=== PATIENT | female | born 1975 | race Caucasian/White ===

== ENCOUNTER → 2018-03-11 | Outpatient (CLI) | payer BC ==
--- NOTE | 2018-03-11 13:06 | XR ---
EXAMINATION TYPE: XR chest 2V DATE OF EXAM: 03/11/2018 COMPARISON: NONE HISTORY: History of ovarian cancer per order. Cough for 4 days on chemotherapy per patient. TECHNIQUE: Frontal and lateral views of the chest are obtained. FINDINGS: There is no focal air space opacity, pleural effusion, or pneumothorax seen. The cardiac silhouette size is within normal limits. The osseous structures are intact. IMPRESSION: No suspicious acute infiltrate.
== END ==
LOC: RADXRMAIN 12:02
PROVIDERS: ATTEND Internal Medicine Hematology & Oncology
DX: C56.9 Malignant neoplasm of unspecified ovary (principal); M25.50 Pain in unspecified joint; R11.0 Nausea; Z71.3 Dietary counseling and surveillance
CPT/HCPCS: 71046

== ENCOUNTER → 2018-06-03 | Outpatient (CLI) | payer BC ==
[2018-06-03 12:09] LABS: Blood Urea Nitrogen 15 mg/dL (7-17)
--- NOTE | 2018-06-03 13:55 | CT ---
EXAMINATION TYPE: CT abdomen pelvis w con DATE OF EXAM: 06/03/2018 HISTORY: Recent diagnosis ovarian cancer. CT DLP: 921.6mGycm Automated Exposure Control for Dose Reduction was Utilized. CONTRAST: CT scan of the abdomen and pelvis is performed with IV Contrast, patient injected with 100 mL of Isov ue 300. COMPARISON: None. FINDINGS: LUNG BASES: No significant abnormality is appreciated. LIVER/GB: There is a solitary hypoattenuated left hepatic lobe lesion measuring 1 cm that is best see n on coronal series 7 image 35. This questionably begins to fill in with contrast on delayed imaging and further characterization with MR is recommended. There is very slight hepatic steatosis in compar gricelda to the enhancement of the spleen. Remainder of the hepatic parenchyma enhances homogeneously. No intrahepatic biliary ductal dilatation. No cholelithiasis. PANCREAS: No significant abnormality is seen. SPLEEN: No significant abnormality is seen. Splenule is seen adjacent to the [place] spleen. ADRENALS: There is very slight thickening of the left adrenal gland inferiorly with no focal measurab le lesion. Right adrenal gland is unremarkable. KIDNEYS: Kidneys enhance and excrete symmetrically without hydronephrosis. No focal renal lesion is s een. BOWEL: An independent gastric fundus elongated density likely represents recently ingested material a s there are foci of internal air. There are prominent haustra within the ascending colon, however no dilated large or small bowel are seen. No pericolonic fat stranding. UTERUS/ADNEXA: There is a fluid attenuated right adnexal mass measuring 3.6 x 4.5 x 4.5 cm. Uterus is surgically absent. No left adnexal lesions are seen. LYMPH NODES: No greater than 1cm abdominal or pelvic lymph nodes are appreciated. OSSEOUS STRUCTURES: Mild degenerative changes are seen at L5-S1. OTHER: No mesenteric implants are appreciated on today's examination. IMPRESSION: 1. Right adnexal mass measuring approximately 3.6 x 4.5 x 5.5 cm is thought to represent the patient' s known primary ovarian neoplasm. 2. Solitary hypoattenuated nonspecific left hepatic lobe lesion. This appears difficult for percutane ous biopsy and further characterization with enhanced MRI is recommended as this could represent dagoberto ngioma. Additionally if there is any prior outside imaging for comparison of stability addendum could be made.
== END | disposition home or self-care (01) ==
LOC: RADCTMAIN 11:24
PROVIDERS: ATTEND Internal Medicine Hematology & Oncology
DX: C56.9 Malignant neoplasm of unspecified ovary (principal); N85.8 Other specified noninflammatory disorders of uterus; K76.9 Liver disease, unspecified
CPT/HCPCS: 82565; 84520; 74177; 36415; Q9967

== ENCOUNTER → 2019-01-04 | Outpatient (CLI) | payer BC ==
--- NOTE | 2019-01-05 10:12 | CT ---
EXAMINATION TYPE: CT ChestAbdPelvis w con DATE OF EXAM: 01/04/2019 COMPARISON: CT abdomen and pelvis June 03, 2018. HISTORY: f/u ovarian ca CT DLP: 1245 mGycm. Automated Exposure Control for Dose Reduction was Utilized. CONTRAST: CT scan of the thorax, abdomen and pelvis is performed with oral and with IV Contrast, patient inject ed with 100 mL of Isovue 300. FINDINGS: LUNGS: Scattered areas of groundglass nodules and [id number]-type nodularity throughout the right up per lobe are present. For reference there is a 5 x 4 mm groundglass nodule axial image 24. Left lung is clear. No pleural effusion or pneumothorax is evident bilaterally. Tracheobronchial tree is patent . MEDIASTINUM: There are no greater than 1 cm hilar or mediastinal lymph nodes. Some residual thymus t issue axial image 21 anterior superior mediastinum is felt present. No cardiomegaly or pericardial effusion is seen. LIVER/GB: Stable poorly defined hypoattenuating lesion left hepatic dome lateral segment measuring ro ughly 2.1 x 0.7 cm. Suspected benign etiology given stability and appearance as appears more hyperden se or smaller in size on delayed images suggesting peripheral nodular enhancement or filling. PANCREAS: No significant abnormality is seen. SPLEEN: There is 1.3 cm splenule redemonstrated axial image 57. ADRENALS: No significant abnormality is seen. KIDNEYS: Circumaortic left renal vein is normal variant. BOWEL: Oral contrast reaches level of proximal sigmoid colon. There is no suspicious small or large b owel dilatation. GENITAL ORGANS: Uterus is surgically absent. Left ovary is not seen and suspected surgically absent. Low dense lesion right pelvis or ovary measures 2.5 x 2.4 cm segment 101 diminished in size from prio r. Left-sided pelvic phleboliths are redemonstrated. LYMPH NODES: No greater than 1cm abdominal or pelvic lymph nodes are appreciated. OSSEOUS STRUCTURES: There is moderate disc space narrowing with vacuum disc phenomenon at L5-S1 level . OTHER: There are ventral wall hernias containing fat and tiny mesenteric and the anterior abdominal w all. IMPRESSION: No convincing evidence of metastatic disease. Unilateral right upper lobe findings would favor postinfectious etiology, correlate clinically. Right pelvic or ovarian low dense lesion dimini shed in size from prior exam would favor benign etiology or positive treatment response if actively u ndergoing treatment or chemotherapy.
== END | disposition home or self-care (01) ==
LOC: RADCTMAIN 14:45
PROVIDERS: ATTEND Internal Medicine Hematology & Oncology
DX: C56.9 Malignant neoplasm of unspecified ovary (principal); Z03.89 Encounter for observation for other suspected diseases and conditions ruled out
CPT/HCPCS: 71260; 74177; Q9967

== ENCOUNTER → 2019-04-18 | Outpatient (CLI) | payer BC ==
--- NOTE | 2019-04-19 07:20 | MM ---
Reason for exam: screening (asymptomatic). Baseline mammogram. History: Patient is postmenopausal, has history of ovarian cancer at age 41, and is nulliparous. Physical Findings: Nurse did not find any significant physical abnormalities on exam. MG Screening Mammo w CAD Bilateral CC and MLO view(s) were taken. FB view(s) were taken of the right breast. There are scattered fibroglandular densities. No suspicious abnormality. Medial right breast asymmetric density does not persist on the XCCL view. These results were verbally communicated with the patient and result sheet given to the patient on 04/18/19. ASSESSMENT: Negative, BI-RAD 1 RECOMMENDATION: Routine screening mammogram of both breasts in 1 year.
== END ==
LOC: RADMAMWWP 15:09
PROVIDERS: ATTEND Obstetrics & Gynecology Obstetrics
DX: Z12.31 Encounter for screening mammogram for malignant neoplasm of breast (principal)
CPT/HCPCS: 77067

== ENCOUNTER → 2019-07-15 | Outpatient (CLI) | payer BC ==
--- NOTE | 2019-07-15 15:44 | CT ---
EXAMINATION TYPE: CT ChestAbdPelvis w con DATE OF EXAM: 07/15/2019 INDICATION: Ovarian ca. Elevated tumor marker. COMPARISON: 01/04/2019 CT DLP: 1279.70 mGycm CONTRAST: Performed with Oral Contrast and with IV Contrast, patient injected with 100 mL of Isovue 300. TECHNIQUE: Axial images at 5 mm thick sections. Reconstructed images in the coronal plane. Delayed images through the kidneys. FINDINGS: CT CHEST: Portion of the thyroid visualized is normal. No suspicious lung nodules or focal infiltrates are present. No enlarged mediastinal or hilar adenopathy is evident. The ascending aorta diameter at the level of the main pulmonary artery is 3.2 cm. The main pulmonary artery diameter at the bifurcation is 3.[address] ABDOMEN: Liver: There may be some mild fatty infiltration of the liver. Spleen: Normal. Small splenule is anterior to the spleen. Pancreas: Normal Adrenal glands: The adrenal glands are normal. Gallbladder: Normal Kidneys: No masses are evident. No hydronephrosis is present. No cysts are present. Delayed images were obtained through the kidneys, which remain unremarkable. Aorta: Normal Inferior vena cava: Normal. CT PELVIS: No omental caking is evident. No free fluid is within the abdomen or pelvis. Loops of bowel within the abdomen and pelvis are normal. A few diverticuli are within the distal sig moid colon. There are loops of bowel which are incompletely distended or lack oral contrast limiting their evaluation. Appendix: Normal as visualized. Urinary bladder: Normal. Genitourinary structures: Uterus and ovaries appear to be absent. Osseous structures: No suspicious lytic or sclerotic lesions. Lymphadenopathy: There may be a 2.3 cm right iliac chain lymph node. Ovarian cyst from a remnant ovar y should be considered.. Series 3 image 104. This is smaller than the comparison. IMPRESSIONS: 1. Diminished size of a suspected right iliac chain lymph node. Remnant ovarian tissue not excluded. 2. Suspicious changes to suggest metastatic or recurrent ovarian cancer are not otherwise evident.
== END | disposition home or self-care (01) ==
LOC: RADCTMAIN 13:23
PROVIDERS: ATTEND Internal Medicine Hematology & Oncology
DX: C56.9 Malignant neoplasm of unspecified ovary (principal)
CPT/HCPCS: 71260; 74177; Q9967

== ENCOUNTER → 2019-11-04 | Outpatient (CLI) | payer BC ==
[2019-11-04 10:25] LABS: African American GFR (CKD) >90 (>60 ml/min/1.73 sqM); Blood Urea Nitrogen 11 mg/dL (7-17); Non-African American GFR(CKD) >90 (>60 ml/min/1.73 sqM)
--- NOTE | 2019-11-05 11:12 | CT ---
EXAMINATION TYPE: CT abdomen pelvis w con DATE OF EXAM: 11/04/2019 HISTORY: follow up ovarian cancer CT DLP: 796.5mGycm Automated Exposure Control for Dose Reduction was Utilized. CONTRAST: CT scan of the abdomen and pelvis is performed with IV Contrast, patient injected with 100 mL of Isov ue 300. COMPARISON: 07/15/2019, 01/04/2019 and 06/03/2018 FINDINGS: LUNG BASES: No significant abnormality is appreciated. LIVER/GB: There is redemonstration of a similar appearing left hepatic lobe lesion measuring approxim ately 2.2 cm with some peripheral nodular enhancement that is continuous on delayed imaging again fav oring a benign hemangioma. There is mild degree hepatic steatosis, which limits evaluation of hepatic masses. The most cranial aspect of the hepatic dome is not imaged and cannot be evaluated on today's exam given right hemidiaphragm elevation. In the visualized portions of the liver no new hepatic les ion is seen. No radiopaque cholelithiasis on CT. Gallbladder is contracted. There is new haziness in the mesentery of the yvonne hepatis marked on axial image 18 and 17 as well a s coronal image 35. PANCREAS: No significant abnormality is seen. SPLEEN: No splenomegaly. Small splenule seen adjacent to the [place] spleen. ADRENALS: No new nodules or thickening. KIDNEYS: The kidneys enhance and excrete symmetrically. Incidental note is again made of a circumaort ic left renal vein, normal variant. BOWEL: There is new linear hyperdensity within the mesentery extending from the greater curvature the stomach towards the spleen on axial image 22 on the lateral conal fascia on axial image 22. Thickeni ng of the lateral conal fascia extends towards the descending colon. UTERUS/ADNEXA: Right ovarian lesion measures 1.8 x 1.7 cm, stable in size from the prior when measure d in a similar fashion. Uterus appears surgically absent. LYMPH NODES: No greater than 1cm abdominal or pelvic lymph nodes are appreciated. OSSEOUS STRUCTURES: Mild degenerative disc disease at L5-S1. OTHER: Scarring is seen in the left lower quadrant subcutaneous tissues on axial image 46. IMPRESSION: 1. New mesenteric haziness in the yvonne hepatis, in the gastrosplenic region, and along the lateral c onal fascia are seen. In a patient with ovarian cancer slightly atypical appearing peritoneal carcino matosis is possible. Considerations could be given to PET CT, short-term follow-up, or surgical explo ration as these areas are nonsolid and percutaneous biopsy may yield a false resolved or nondiagnosti c result. 2. Continued stability of the left hepatic lobe lesion, again favored to represent hemangioma. Contin ued surveillance is recommended. 3. Stable size of the right ovarian lesion.
== END | disposition home or self-care (01) ==
LOC: RADCTMAIN 09:36
PROVIDERS: ATTEND Internal Medicine Hematology & Oncology
DX: K76.9 Liver disease, unspecified (principal); N83.8 Other noninflammatory disorders of ovary, fallopian tube and broad ligament; C56.9 Malignant neoplasm of unspecified ovary
CPT/HCPCS: 82565; 84520; 74177; 36415; Q9967

== ENCOUNTER → 2019-12-09 | Outpatient (CLI) | payer BC ==
--- NOTE | 2019-12-12 08:15 | PE ---
Nuclear medicine PET/CT HISTORY: Metastatic ovarian carcinoma, C 56.2, subsequent Patient received 10.8 mCi F-18 FDG intravenously in delayed scanning was performed from the skull bas e to the mid thighs. Localization and attenuation correction CT scan was performed. Correlation to prior CT scan 11/04/2019 Neck and chest: There is no supraclavicular, cervical, mediastinal, axillary, or hilar adenopathy. No suspicious uptake. There is no evident lung mass, no pleural or pericardial effusion. ABDOMEN: Metallic density in the left upper quadrant mesenteric fat lateral to the greater curvature of the stomach extends in a linear ranging fashion similar to prior CT. There is increased attenuatio n in the subcutaneous fat which has improved in the left lower quadrant, some localized FDG avid area s present involving the musculature and tract to the skin surface, correlate for prior surgical inter vention, laparoscopy. Some increased attenuation is present along the antimesenteric border of the [place] wel in this region. Some uptake also noted in the rectus musculature along anterior abdominal wall in the left is mild. No other suspicious hypermetabolic uptake. No pelvic adenopathy or free fluid. Siena gaetano and adnexal structures are not seen. No evident liver uptake. Osseous structures show no suspicious uptake. IMPRESSION: Suspect abdominal wall uptake may be related to prior surgical intervention and inflammat ory change, follow-up is recommended. Correlate with prior surgical history, laparoscopy, abnormal at tenuation within the mesenteric fat again noted.
== END | disposition home or self-care (01) ==
LOC: RADPETMAIN 12:05
PROVIDERS: ATTEND Internal Medicine Hematology & Oncology
DX: C56.1 Malignant neoplasm of right ovary (principal); C56.2 Malignant neoplasm of left ovary
CPT/HCPCS: 78815; A9552

== ENCOUNTER 2020-01-06 21:03 | Emergency (ER) | payer BC ==
[2020-01-06] MEDS ORDERED: KETOROLAC 30 MG/ML 1 ML VIAL IVP STA (21:34)
[2020-01-06] MEDS ORDERED: ONDANSETRON 4 MG/2 ML VIAL IVP STA (21:34)
[2020-01-06] MEDS ORDERED: MORPHINE SULFATE 4 MG/ML SYRINGE IV STA (21:34)
[2020-01-06] MEDS ORDERED: SODIUM CHLORIDE 0.9% 1,000 ML IV STA (21:34)
--- NOTE | 2020-01-06 21:39 | ED ---
Abdominal Pain HPI - General Chief Complaint: Abdominal Pain Stated Complaint: Abdominal pain Time Seen by Provider: 01/06/20 21:22 Source: patient Mode of arrival: ambulatory Limitations: no limitations - History of Present Illness Initial Comments: Patient is a 44-year-old female, currently receiving treatment for ovarian cancer, presenting to the emergency Department with complaints of acute onset abdominal pain started approximately 5 hours prior to arrival. Patient states the pain is located in her mid to right side of her abdomen, started very dull and achy and now has progressed to a constant sharp stabbing pain. Patient states she's never had this kind of pain before. She states her last round of chemo was December 21. She states she did just receive a PET scan last month and showed things are stable. She also admits to some nausea, no vomiting. She rates her pain 10/10. He denies any recent fever, chills. She does have history of hysterectomy, laparotomy, no other abdominal surgeries. She's been having regular bowel movements, denies any dysuria. She has no further complaints. Upon arrival to the ER, her vital signs are stable. - Related Data Home Medications Medication Instructions Recorded Confirmed Ibuprofen [Motrin Ib] 200 mg PO DAILY PRN 01/06/20 01/06/20 Omeprazole [PriLOSEC] 20 mg PO DAILY PRN 01/06/20 01/06/20 Ondansetron [Zofran] 4 mg PO Q4H PRN 01/06/20 01/06/20 Sennosides/Docusate Sodium [Senna 1 tab PO DAILY PRN 01/06/20 01/06/20 Plus 8.6-50 mg Softgel] diphenhydrAMINE HCL [Benadryl] 25 mg PO ONCE PRN 01/06/20 01/06/20 Previous Rx's Medication Instructions Recorded Metoclopramide [Reglan] 10 mg PO TID PRN #10 tab 01/06/20 Allergies Allergy/AdvReac Type Severity Reaction Status Date / Time No Known Allergies Allergy Verified 01/06/20 22:19 Review of Systems ROS Statement: Those systems with pertinent positive or pertinent negative responses have been documented in the HPI. ROS Other: All systems not noted in ROS Statement are negative. Past Medical History Additional Past Medical History / Comment(s): ovarian cancer History of Any Multi-Drug Resistant Organisms: None Reported Past Surgical History: Hysterectomy Past Psychological History: Anxiety, Depression Smoking Status: Current every day smoker Past Alcohol Use History: Occasional Past Drug Use History: Marijuana General Exam - General Exam Comments Initial Comments: GENERAL: Well-appearing, well-nourished, in mild distress secondary to abdominal pain. HEAD: Atraumatic, normocephalic. EYES: Pupils equal round and reactive to light, extraocular movements intact, sclera anicteric, conjunctiva are normal. ENT: TMs normal, nares patent, oropharynx clear without exudates. Moist mucous membranes. NECK: Normal range of motion, supple without lymphadenopathy or JVD. LUNGS: Breath sounds clear to auscultation bilaterally and equal. No wheezes rales or rhonchi. HEART: Regular rate and rhythm without murmurs, rubs or gallops. ABDOMEN: Tender to palpation of the epigastric, left and right upper quadrants, positive guarding. Soft, normoactive bowel sounds. No masses appreciated. : Deferred EXTREMITIES: Normal range of motion, no pitting or edema. No clubbing or cyanosis. NEUROLOGICAL: Normal speech, normal gait. PSYCH: Normal mood, normal affect. SKIN: Warm, Dry, normal turgor, no rashes or lesions noted. Limitations: no limitations Course Vital Signs 01/06/20 01/06/20 21:14 23:12 Temperature 98 F 97.2 F L Pulse Rate 85 63 Respiratory 16 18 Rate Blood Pressure 134/82 144/98 O2 Sat by Pulse 99 100 Oximetry Medical Decision Making - Medical Decision Making Patient is a 44-year-old female currently receiving treatment for ovarian cancer here for severe abdominal pain that started 5 hours prior to arrival. Her vitals are stable, afebrile. Her last round of chemo was December 21. Patient vital signs are stable. Lab work is unremarkable, lactic acid is normal. Urine shows no evidence of infection. CT the abdomen shows a mild dilated small bowel, no obstructing lesion seen at this time, this is most likely related to an ileus. All other findings have been stable compared to her latest CT. Patient was given some fluids, pain control, Zofran. She reports improvement in her symptoms. Patient has been able to tolerate some oral intake. I discussed with patient to increase her walking as well as laying in the left side. She is able to be discharged at this time. Patient is agreement with this plan of care,she does not want to stay in the hospital. Strict return parameters were discussed with the patient she verbalized understanding. Case discussed with Dr. Mcintosh. - Lab Data Result diagrams: 01/06/20 21:50 01/06/20 21:50 Lab Results 01/06/20 01/06/20 01/06/20 Range/Units 21:50 21:50 21:50 WBC 4.2 (3.8-10.6) k/uL RBC 4.13 (3.80-5.40) m/uL Hgb 14.3 (11.4-16.0) gm/dL Hct 40.9 (34.0-46.0) % MCV 99.0 (80.0-100.0) fL MCH 34.5 (25.0-35.0) pg MCHC 34.8 (31.0-37.0) g/dL RDW 16.5 H (11.5-15.5) % Plt Count 178 (150-450) k/uL Neutrophils % 57 % Lymphocytes % 31 % Monocytes % 6 % Eosinophils % 2 % Basophils % 0 % Neutrophils # 2.4 (1.3-7.7) k/uL Lymphocytes # 1.3 (1.0-4.8) k/uL Monocytes # 0.3 (0-1.0) k/uL Eosinophils # 0.1 (0-0.7) k/uL Basophils # 0.0 (0-0.2) k/uL Anisocytosis Slight Macrocytosis Slight Sodium 136 L (137-145) mmol/L Potassium 4.2 (3.5-5.1) mmol/L Chloride 104 (98-107) mmol/L Carbon Dioxide 20 L (22-30) mmol/L Anion Gap 12 mmol/L BUN 11 (7-17) mg/dL Creatinine 0.54 (0.52-1.04) mg/dL Est GFR (CKD-EPI)AfAm >90 (>60 ml/min/1.73 sqM) Est GFR (CKD-EPI)NonAf >90 (>60 ml/min/1.73 sqM) Glucose 103 H (74-99) mg/dL Plasma Lactic Acid [place] (0.7-2.0) mmol/L Calcium 10.2 (8.4-10.2) mg/dL Total Bilirubin 0.5 (0.2-1.3) mg/dL AST 36 (14-36) U/L ALT 32 (4-34) U/L Alkaline Phosphatase 120 (38-126) U/L Total Protein 7.9 (6.3-8.2) g/dL Albumin 4.8 (3.5-5.0) g/dL Amylase 93 (30-110) U/L Lipase 43 (23-300) U/L Urine Color Yellow Urine Appearance Clear (Clear) Urine pH 7.5 (5.0-8.0) Ur Specific [place] 1.021 (1.001-1.035) Urine Protein Trace H (Negative) Urine Glucose (UA) Negative (Negative) Urine Ketones Negative (Negative) Urine Blood Negative (Negative) Urine Nitrite Negative (Negative) Urine Bilirubin Negative (Negative) Urine Urobilinogen 2.0 (<2.0) mg/dL Ur Leukocyte Esterase Negative (Negative) 01/06/20 Range/Units 21:50 WBC (3.8-10.6) k/uL RBC (3.80-5.40) m/uL Hgb (11.4-16.0) gm/dL Hct (34.0-46.0) % MCV (80.0-100.0) fL MCH (25.0-35.0) pg MCHC (31.0-37.0) g/dL RDW (11.5-15.5) % Plt Count (150-450) k/uL Neutrophils % % Lymphocytes % % Monocytes % % Eosinophils % % Basophils % % Neutrophils # (1.3-7.7) k/uL Lymphocytes # (1.0-4.8) k/uL Monocytes # (0-1.0) k/uL Eosinophils # (0-0.7) k/uL Basophils # (0-0.2) k/uL Anisocytosis Macrocytosis Sodium (137-145) mmol/L Potassium (3.5-5.1) mmol/L Chloride (98-107) mmol/L Carbon Dioxide (22-30) mmol/L Anion Gap mmol/L BUN (7-17) mg/dL Creatinine (0.52-1.04) mg/dL Est GFR (CKD-EPI)AfAm (>60 ml/min/1.73 sqM) Est GFR (CKD-EPI)NonAf (>60 ml/min/1.73 sqM) Glucose (74-99) mg/dL Plasma Lactic Acid [place] 1.2 (0.7-2.0) mmol/L Calcium (8.4-10.2) mg/dL Total Bilirubin (0.2-1.3) mg/dL AST (14-36) U/L ALT (4-34) U/L Alkaline Phosphatase (38-126) U/L Total Protein (6.3-8.2) g/dL Albumin (3.5-5.0) g/dL Amylase (30-110) U/L Lipase (23-300) U/L Urine Color Urine Appearance (Clear) Urine pH (5.0-8.0) Ur Specific [place] (1.001-1.035) Urine Protein (Negative) Urine Glucose (UA) (Negative) Urine Ketones (Negative) Urine Blood (Negative) Urine Nitrite (Negative) Urine Bilirubin (Negative) Urine Urobilinogen (<2.0) mg/dL Ur Leukocyte Esterase (Negative) Disposition Clinical Impression: Abdominal pain, Ileus, unspecified Disposition: HOME SELF-CARE Condition: Stable Instructions (If sedation given, give patient instructions): Abdominal Pain (ED) Additional Instructions: Please return to the Emergency Department if symptoms worsen or any other concerns. Continue to hydrate appropriately, increase walking. Trial of Reglan to improve symptoms. Prescriptions: Metoclopramide [Reglan] 10 mg PO TID PRN #10 tab PRN Reason: Nausea Is patient prescribed a controlled substance at d/c from ED?: No Referrals: Roberta Shrestha MD [Primary Care Provider] - 1-2 days
[2020-01-06 22:00] LABS: Anisocytosis Slight; Basophils % (A) 0 %; Eosinophils # (A) 0.1 k/uL (0-0.7); Eosinophils % (A) 2 %; HCT 40.9 % (34.0-46.0); HGB 14.3 gm/dL (11.4-16.0); Lymphocytes # (A) 1.3 k/uL (1.0-4.8); Lymphocytes % (A) 31 %; MCH 34.5 pg (25.0-35.0); MCHC 34.8 g/dL (31.0-37.0); Macrocytosis Slight; Mean Platelet Volume 7.5; Monocytes # (A) 0.3 k/uL (0-1.0); Monocytes % (A) 6 %; Neutrophils # (A) 2.4 k/uL (1.3-7.7); Neutrophils % (A) 57 %; Platelet Count 178 k/uL (150-450); RBC 4.13 m/uL (3.80-5.40); RDW 16.5 % (11.5-15.5); WBC 4.2 k/uL (3.8-10.6)
[2020-01-06 22:08] LABS: ALT 32 U/L (4-34); AST 36 U/L (14-36); African American GFR (CKD) >90 (>60 ml/min/1.73 sqM); Albumin 4.8 g/dL (3.5-5.0); Alkaline Phosphatase 120 U/L (38-126); Amylase 93 U/L (30-110); Anion Gap 12 mmol/L; Blood Urea Nitrogen 11 mg/dL (7-17); Calcium 10.2 mg/dL (8.4-10.2); Carbon Dioxide 20 mmol/L (22-30); Chloride 104 mmol/L (98-107); Glucose 103 mg/dL (74-99); Non-African American GFR(CKD) >90 (>60 ml/min/1.73 sqM); Potassium 4.2 mmol/L (3.5-5.1); Sodium 136 mmol/L (137-145); Total Bilirubin 0.5 mg/dL (0.2-1.3); Total Protein 7.9 g/dL (6.3-8.2)
[2020-01-06 22:36] LABS: Appearance,Urine Clear (Clear); Bilirubin,Urine Negative (Negative); Blood,Urine Negative (Negative); Color,Urine Yellow; Glucose,Urine (UA) Negative (Negative); Ketones,Urine Negative (Negative); Leukocyte Esterase,Urine Negative (Negative); Nitrite,Urine Negative (Negative); PH, Urine 7.5 (5.0-8.0); Protein,Urine Trace (Negative); Specific Gravity,Urine 1.021 (1.001-1.035)
--- NOTE | 2020-01-06 22:46 | CT ---
EXAMINATION TYPE: CT abdomen pelvis w con DATE OF EXAM: 01/06/2020 COMPARISON: 11/04/2019 HISTORY: abdominal pain, nausea CT DLP: 1041.9 mGycm Automated exposure control for dose reduction was used. CONTRAST: Performed with IV Contrast, patient injected with 100 mL of Isovue 300. Images were obtained from the diaphragm to the floor the pelvis with IV contrast. Lung bases are clear. There is no pleural effusion. Heart size is normal. There is a 3 cm nodular enhancing lesion in the left lobe of the liver consistent with hemangioma unc hanged. spleen stomach pancreas gallbladder appear normal. Bile ducts are not dilated. There is no adrenal mass. Kidneys show satisfactory contrast opacification. There is no hydronephrosi s. Ureters are not dilated. There is no retroperitoneal adenopathy. Bladder distends smoothly. There is no inguinal hernia. There is no free fluid in the pelvis. Appendix is not seen. There is no sign o f thickened appendix. There is some linear density that is probably calcified along the greater curva ture of the stomach and along the lateral abdominal wall in the left paracolic gutter unchanged. This could relate to some scarring. There are distended small bowel loops with fluid up to 3.5 cm in diameter. I see no transition point. Terminal ileum is not dilated. There is no ascites. There is no free air. There is no mesenteric sugar ma. There is no free fluid in the pelvis. There is hysterectomy. Lumbar vertebra have normal alignment. There is narrowing at L5-S1 disc space with vacuum disc. There is spurring of the endplates. The posterior elements are intact. Bony pelvis is intact. IMPRESSION: Compared to last exam there is appearance of mild dilated small bowel in the mid abdomen. No obstruct ing lesion seen. This appearance is more likely related to ileus. There is stable linear calcific density along the greater curvature of the stomach and left paracolic gutter unchanged.
[2020-01-06 23:12] VITALS: BP 144/98; PULSE 63; RESP 18; TEMP 97.2
== END 2020-01-06 23:19 | disposition home or self-care (01) ==
LOC: EC 21:03
DX: K56.7 Ileus, unspecified (principal); F17.200 Nicotine dependence, unspecified, uncomplicated; Z85.43 Personal history of malignant neoplasm of ovary; Z90.710 Acquired absence of both cervix and uterus
CPT/HCPCS: 36415; 80053; 82150; 83605; 83690; 85025; 81003; 74177; 99284; 96374; 96375 ×2; 96361; J2270; J2405; J1885; Q9967

== ENCOUNTER → 2020-05-17 | Outpatient (CLI) | payer BC ==
--- NOTE | 2020-05-17 12:00 | ECHOF ---
Referral Reason:Z01.818 chemo exposure MEASUREMENTS -------- HEIGHT: 160.0 cm WEIGHT: 78.0 kg BP: RVIDd: 2.0 cm (< 3.3) IVSd: 1.1 cm (0.6 - 1.1) LVIDd: 3.1 cm (3.9 - 5.3) LVPWd: 1.1 cm (0.6 - 1.1) IVSs: 1.7 cm LVIDs: 2.0 cm LVPWs: 1.6 cm Ao Diam: 2.4 cm (2.0 - 3.7) AV Cusp: 1.6 cm (1.5 - 2.6) LA Diam: 2.3 cm (2.7 - 3.8) MV EXCURSION: 16.356 mm (> 18.000) MV EF SLOPE: 96 mm/s (70 - 150) EPSS: 0.4 cm MV E Sudheer: 0.67 m/s MV DecT: 154 ms MV A Sudheer: 0.67 m/s MV E/A Ratio: 1.01 RAP: 5.00 mmHg RVSP: 10.02 mmHg FINDINGS -------- This was a technically difficult study with suboptimal views. The left ventricular size is normal. Left ventricular wall thickness is normal. Overall left vent ricular systolic function is normal with, an EF between 55 - 60 %. The right ventricle is normal in size. The left atrial size is normal. The right atrial size is normal. xx ml of Lumason was utilized for enhancement of images. The aortic valve is trileaflet and appears structurally normal. The mitral valve is normal. Mild mitral regurgitation is present. The tricuspid valve appears structurally normal. Mild tricuspid regurgitation present. Right vent ricular systolic pressure is normal at < 35 mmHg. There is no pulmonic regurgitation present. The aortic root size is normal. IVC Not well visulized. There is no pericardial effusion. CONCLUSIONS -------- 1. The left ventricular size is normal. 2. Left ventricular wall thickness is normal. 3. Overall left ventricular systolic function is normal with, an EF between 55 - 60 %. 4. Mild mitral regurgitation is present. 5. Mild tricuspid regurgitation present. 6. There is no pericardial effusion. [employer]INO SHIFT MANAGER: Rachel Dior RDCS
== END | disposition home or self-care (01) ==
LOC: RADECHMAIN 10:41
PROVIDERS: ATTEND Internal Medicine Hematology & Oncology
DX: I08.1 Rheumatic disorders of both mitral and tricuspid valves (principal)
CPT/HCPCS: 93306; Q9950

== ENCOUNTER → 2020-07-13 | Outpatient (CLI) | payer BC ==
[2020-07-13 13:59] LABS: African American GFR (CKD) >90 (>60 ml/min/1.73 sqM); Blood Urea Nitrogen 14 mg/dL (7-17); Non-African American GFR(CKD) >90 (>60 ml/min/1.73 sqM)
--- NOTE | 2020-07-13 15:40 | CT ---
EXAMINATION TYPE: CT abdomen pelvis w con DATE OF EXAM: 07/13/2020 HISTORY: Ovarian CA, pt c/o LT side pain CT DLP: 1355mGycm Automated Exposure Control for Dose Reduction was Utilized. CONTRAST: CT scan of the abdomen and pelvis is performed with IV Contrast, patient injected with 100 mL of Isov ue 300. COMPARISON: Most recent CT January 06, 2020 and older studies. PET/CT from 06/17/2020 FINDINGS: LUNG BASES: No significant abnormality is appreciated. LIVER/GB: Visualized liver is heterogeneously hypodense consistent with diffuse fatty infiltration. PANCREAS: No significant abnormality is seen. SPLEEN: Stable splenule anterior aspect of the spleen. ADRENALS: No significant abnormality is seen. KIDNEYS: Symmetric cortical medullary uptake and excretion without concerning renal mass or hydroneph rosis seen bilaterally. Circumaortic left renal vein which is normal variant. BOWEL: Oral contrast reaches level of hepatic flexure. No suspicious small or large bowel dilatation identified. UTERUS/ADNEXA: Uterus is surgically absent. A few scattered left sided pelvic phleboliths. LYMPH NODES: No greater than 1cm abdominal or pelvic lymph nodes are appreciated. OSSEOUS STRUCTURES: Moderate disc space narrowing reflecting disc phenomenon L5-S1 level. OTHER: Left lateral linear scarring mid abdomen is redemonstrated axial image 61. IMPRESSION: No new mass or adenopathy to suggest neoplastic recurrence.
== END | disposition home or self-care (01) ==
LOC: RADCTMAIN 13:19
PROVIDERS: ATTEND Internal Medicine Hematology & Oncology
DX: C56.9 Malignant neoplasm of unspecified ovary (principal); Z92.21 Personal history of antineoplastic chemotherapy
CPT/HCPCS: 82565; 84520; 74177; 36415; Q9967

== ENCOUNTER 2020-10-26 22:37 | Emergency (ER) | payer BC ==
[2020-10-26 22:45] VITALS: RESP 16; TEMP 97.4
[2020-10-26] MEDS ORDERED: SODIUM CHLORIDE 0.9% 500 ML 500 ML IV STA (23:32)
[2020-10-27 00:20] LABS: Anisocytosis Moderate; Basophils # (A) 0.1 k/uL (0-0.2); Basophils % (A) 1 %; Eosinophils # (A) 0.1 k/uL (0-0.7); Eosinophils % (A) 1 %; HCT 34.5 % (34.0-46.0); HGB 11.3 gm/dL (11.4-16.0); Lymphocytes # (A) 0.8 k/uL (1.0-4.8); Lymphocytes % (A) 10 %; MCHC 32.7 g/dL (31.0-37.0); MCV 97.6 fL (80.0-100.0); Macrocytosis Slight; Monocytes # (A) 0.4 k/uL (0-1.0); Monocytes % (A) 5 %; Neutrophils # (A) 6.9 k/uL (1.3-7.7); Neutrophils % (A) 82 %; Platelet Count 265 k/uL (150-450); Poikilocytosis Slight; RBC 3.54 m/uL (3.80-5.40); RDW 21.1 % (11.5-15.5); WBC 8.4 k/uL (3.8-10.6)
--- NOTE | 2020-10-27 00:26 | ED ---
Abdominal Pain HPI - General Chief Complaint: Abdominal Pain Stated Complaint: abd pain Time Seen by Provider: 10/26/20 23:00 Source: patient, EMS Mode of arrival: EMS Limitations: no limitations - History of Present Illness Initial Comments: 44 year-old female patient currently undergoing treatment for metastatic ovarian cancer presents to the emergency department for evaluation of abdominal pain. States around 6pm she started to have pain to the upper abdomen. She states it was a deep squeezing pain. States she was nauseated and did have some shaking. States that she came in for evaluation, upon arrival the pain improved somewhat and moved to the lower abdomen. Denies any radiation through to her back. She did have surgery to the left lower quadrant 8 weeks ago to remove a metastatic lesion. She is currently on hiatus from oral chemo and will be having a port placed for her next infusions on Thursday. She denies any fever or chills. Denies any urinary symptoms. States she does occasionally have issues with constipation. Patient denies any recent rash, cough, shortness of breath, chest pain, back pain, numbness, tingling, dizziness, weakness, hematuria, dysuria, urinary urgency, urinary frequency, headache, visual changes, or any other complaints. - Related Data Home Medications Medication Instructions Recorded Confirmed Omeprazole [PriLOSEC] 20 mg PO DAILY PRN 01/06/20 10/25/20 Ondansetron [Zofran] 4 mg PO Q4H PRN 01/06/20 10/25/20 diphenhydrAMINE HCL [Benadryl] 25 mg PO DAILY PRN 01/06/20 10/25/20 Ehpcvv-Rfhsndxp-Mhsa 1 tab PO Q6H PRN 10/25/20 Hydrocodone/Acetaminophen [[place] 1 tab PO Q6HR PRN 10/25/20 10/25/20 7.5-325] Metoprolol Tartrate [Lopressor] 12.5 mg PO BID 10/25/20 10/25/20 Cyanocobalamin [Vitamin B-12] 500 mcg PO DAILY 10/26/20 10/26/20 Allergies Allergy/AdvReac Type Severity Reaction Status Date / Time No Known Allergies Allergy Verified 10/25/20 09:46 Review of Systems ROS Statement: Those systems with pertinent positive or pertinent negative responses have been documented in the HPI. ROS Other: All systems not noted in ROS Statement are negative. Past Medical History Additional Past Medical History / Comment(s): ovarian cancer History of Any Multi-Drug Resistant Organisms: None Reported Past Surgical History: Appendectomy, Hysterectomy Past Psychological History: Anxiety, Depression Smoking Status: Current some day smoker Past Alcohol Use History: Occasional Past Drug Use History: Marijuana, Prescription Drug Abuse General Exam Limitations: no limitations General appearance: alert, in no apparent distress, other (This is a well- developed, well-nourished adult female patient in no acute distress. Vital signs upon presentation are temperature 97.4F, pulse 90, respirations 16, blood pressure 144/74, pulse ox 100% on room air.) Eye exam: Present: normal appearance, PERRL, EOMI. Absent: scleral icterus, conjunctival injection, periorbital swelling ENT exam: Present: normal exam, normal oropharynx, mucous membranes moist Respiratory exam: Present: normal lung sounds bilaterally. Absent: respiratory distress, wheezes, rales, rhonchi, stridor Cardiovascular Exam: Present: regular rate, normal rhythm, normal heart sounds. Absent: systolic murmur, diastolic murmur, rubs, gallop, clicks GI/Abdominal exam: Present: soft, tenderness (Left lower quadrant.), normal bowel sounds. Absent: distended, guarding, rebound, rigid Neurological exam: Present: alert, oriented X3, CN II-XII intact Psychiatric exam: Present: normal affect, normal mood Skin exam: Present: warm, dry, intact, normal color. Absent: rash Course Vital Signs 10/26/20 10/27/20 22:38 00:27 Temperature 97.4 F L Pulse Rate 90 93 Respiratory 16 16 Rate Blood Pressure 144/74 129/79 O2 Sat by Pulse 100 100 Oximetry Medical Decision Making - Medical Decision Making 44-year-old female patient presents to the emergency department today for evaluation of abdominal pain. States the pain started in the upper abdomen and has now improved and moved to the lower abdomen. Physical examination did reveal some mild left lower quadrant tenderness. Labs reviewed and are unremarkable. KUB was obtained and was unremarkable. Upon reevaluation patient states she is feeling better she would like to be discharged home. She'll be discharged to follow-up with her primary care physician and oncologist for further evaluation. She does have a CAT scan coming up on 10/30/2020. Return parameters were discussed in detail. She verbalizes understanding and agrees this plan. My attending is Dr. Velazquez. - Lab Data Result diagrams: 10/27/20 00:03 10/27/20 00:03 Lab Results 10/27/20 10/27/20 10/27/20 Range/Units 00:03 00:03 00:03 WBC 8.4 (3.8-10.6) k/uL RBC 3.54 L (3.80-5.40) m/uL Hgb 11.3 L (11.4-16.0) gm/dL Hct 34.5 (34.0-46.0) % MCV 97.6 (80.0-100.0) fL MCH 32.0 (25.0-35.0) pg MCHC 32.7 (31.0-37.0) g/dL RDW 21.1 H (11.5-15.5) % Plt Count 265 (150-450) k/uL MPV 8.0 Neutrophils % 82 % Lymphocytes % 10 % Monocytes % 5 % Eosinophils % 1 % Basophils % 1 % Neutrophils # 6.9 (1.3-7.7) k/uL Lymphocytes # 0.8 L (1.0-4.8) k/uL Monocytes # 0.4 (0-1.0) k/uL Eosinophils # 0.1 (0-0.7) k/uL Basophils # 0.1 (0-0.2) k/uL Poikilocytosis Slight Anisocytosis Moderate Macrocytosis Slight Sodium 140 (137-145) mmol/L Potassium 4.2 (3.5-5.1) mmol/L Chloride 107 (98-107) mmol/L Carbon Dioxide 24 (22-30) mmol/L Anion Gap 9 mmol/L BUN 11 (7-17) mg/dL Creatinine 0.56 (0.52-1.04) mg/dL Est GFR (CKD-EPI)AfAm >90 (>60 ml/min/1.73 sqM) Est GFR (CKD-EPI)NonAf >90 (>60 ml/min/1.73 sqM) Glucose 135 H (74-99) mg/dL Plasma Lactic Acid [place] (0.7-2.0) mmol/L Calcium 10.0 (8.4-10.2) mg/dL Total Bilirubin 0.3 (0.2-1.3) mg/dL AST 42 H (14-36) U/L ALT 56 H (4-34) U/L Alkaline Phosphatase 92 (38-126) U/L Total Protein 7.6 (6.3-8.2) g/dL Albumin 4.8 (3.5-5.0) g/dL Lipase 49 (23-300) U/L Urine Color Light Yellow Urine Appearance Clear (Clear) Urine pH 6.5 (5.0-8.0) Ur Specific [place] 1.012 (1.001-1.035) Urine Protein Negative (Negative) Urine Glucose (UA) Negative (Negative) Urine Ketones Negative (Negative) Urine Blood Negative (Negative) Urine Nitrite Negative (Negative) Urine Bilirubin Negative (Negative) Urine Urobilinogen <2.0 (<2.0) mg/dL Ur Leukocyte Esterase Negative (Negative) 10/27/20 Range/Units 00:03 WBC (3.8-10.6) k/uL RBC (3.80-5.40) m/uL Hgb (11.4-16.0) gm/dL Hct (34.0-46.0) % MCV (80.0-100.0) fL MCH (25.0-35.0) pg MCHC (31.0-37.0) g/dL RDW (11.5-15.5) % Plt Count (150-450) k/uL MPV Neutrophils % % Lymphocytes % % Monocytes % % Eosinophils % % Basophils % % Neutrophils # (1.3-7.7) k/uL Lymphocytes # (1.0-4.8) k/uL Monocytes # (0-1.0) k/uL Eosinophils # (0-0.7) k/uL Basophils # (0-0.2) k/uL Poikilocytosis Anisocytosis Macrocytosis Sodium (137-145) mmol/L Potassium (3.5-5.1) mmol/L Chloride (98-107) mmol/L Carbon Dioxide (22-30) mmol/L Anion Gap mmol/L BUN (7-17) mg/dL Creatinine (0.52-1.04) mg/dL Est GFR (CKD-EPI)AfAm (>60 ml/min/1.73 sqM) Est GFR (CKD-EPI)NonAf (>60 ml/min/1.73 sqM) Glucose (74-99) mg/dL Plasma Lactic Acid [place] 1.3 (0.7-2.0) mmol/L Calcium (8.4-10.2) mg/dL Total Bilirubin (0.2-1.3) mg/dL AST (14-36) U/L ALT (4-34) U/L Alkaline Phosphatase (38-126) U/L Total Protein (6.3-8.2) g/dL Albumin (3.5-5.0) g/dL Lipase (23-300) U/L Urine Color Urine Appearance (Clear) Urine pH (5.0-8.0) Ur Specific [place] (1.001-1.035) Urine Protein (Negative) Urine Glucose (UA) (Negative) Urine Ketones (Negative) Urine Blood (Negative) Urine Nitrite (Negative) Urine Bilirubin (Negative) Urine Urobilinogen (<2.0) mg/dL Ur Leukocyte Esterase (Negative) - Radiology Data Radiology results: report reviewed, image reviewed One view x-ray of the abdomen is obtained. Report was reviewed in its entirety. Impression by Dr. Fournier shows moderate quantity of stool throughout the colon. Nonspecific bowel gas pattern. Disposition Clinical Impression: Abdominal pain Disposition: HOME SELF-CARE Condition: Good Instructions (If sedation given, give patient instructions): Abdominal Pain (ED) Additional Instructions: Alt through primary care physician for recheck in 1-2 days. Return for any new, worsening, or concerning symptoms. Is patient prescribed a controlled substance at d/c from ED?: No Referrals: Roberta Shrestha MD [Primary Care Provider] - 1-2 days Time of Disposition: 00:50
--- NOTE | 2020-10-27 00:27 | XR ---
EXAM: XR Abdomen, 1 View CLINICAL HISTORY: ITS.REASON XR Reason: abdominal pain TECHNIQUE: Frontal supine view of the abdomen/pelvis. COMPARISON: No previous studies. FINDINGS: Gastrointestinal tract: Moderate quantity of ingested material in the stomach. Nonspecific bowel gas pattern. No dilation. Bones/joints: Gentle dextroscoliosis of the visualized thoracolumbar spine. Other findings: Ingested pills are noted IMPRESSION: 1. Moderate quantity of stool throughout the colon. 2. Nonspecific bowel gas pattern.
[2020-10-27 00:28] VITALS: BP 129/79; PULSE 93
[2020-10-27 00:29] LABS: ALT 56 U/L (4-34); AST 42 U/L (14-36); African American GFR (CKD) >90 (>60 ml/min/1.73 sqM); Albumin 4.8 g/dL (3.5-5.0); Alkaline Phosphatase 92 U/L (38-126); Anion Gap 9 mmol/L; Appearance,Urine Clear (Clear); Bilirubin,Urine Negative (Negative); Blood Urea Nitrogen 11 mg/dL (7-17); Blood,Urine Negative (Negative); Carbon Dioxide 24 mmol/L (22-30); Chloride 107 mmol/L (98-107); Color,Urine Light Yellow; Glucose 135 mg/dL (74-99); Glucose,Urine (UA) Negative (Negative); Ketones,Urine Negative (Negative); Leukocyte Esterase,Urine Negative (Negative); Lipase 49 U/L (23-300); Nitrite,Urine Negative (Negative); Non-African American GFR(CKD) >90 (>60 ml/min/1.73 sqM); PH, Urine 6.5 (5.0-8.0); Potassium 4.2 mmol/L (3.5-5.1); Protein,Urine Negative (Negative); Sodium 140 mmol/L (137-145); Specific Gravity,Urine 1.012 (1.001-1.035); Total Bilirubin 0.3 mg/dL (0.2-1.3); Total Protein 7.6 g/dL (6.3-8.2); Urobilinogen,Urine <2.0 mg/dL (<2.0)
== END 2020-10-27 00:55 | disposition home or self-care (01) ==
LOC: EC 22:37
DX: R10.32 Left lower quadrant pain (principal); F17.200 Nicotine dependence, unspecified, uncomplicated; F12.90 Cannabis use, unspecified, uncomplicated; Z85.43 Personal history of malignant neoplasm of ovary; Z90.49 Acquired absence of other specified parts of digestive tract; Z90.710 Acquired absence of both cervix and uterus
CPT/HCPCS: 36415; 74018; 80053; 81003; 83605; 83690; 85025; 99284

== ENCOUNTER 2020-10-29 07:47 | Day surgery (SDC) | payer BC ==
[~2020-10-29 07:47] MED LIST: ACETAMINOPHEN TAB 500 MG TAB PO PRN; DEXAMETHASONE SOD PHOSPHATE 4 MG/ML 1 ML VIAL IV ONE; HEPARIN SODIUM,PORCINE/PF 5,000 UNIT/0.5 ML SYRINGE SQ PRN; LACTATED RINGERS 1,000 ML IV SCH; LIDOCAINE 1% (10MG/ML) FOR IV START INTRADERMA PRN; ONDANSETRON 4 MG/2 ML VIAL IVP ONE; Pre Op ABX Message 1 EACH MISC MISCELLANE ONE
[2020-10-29 08:17] VITALS: RESP 16
[2020-10-29] MEDS ORDERED: DEXAMETHASONE SOD PHOSPHATE 4 MG/ML 1 ML VIAL IV ONE (08:30)
--- NOTE | 2020-10-29 08:52 | P.GSHP ---
History of Present Illness H&P Date: 10/29/20 Chief Complaint: ovarian cancer 44-year-old female has been treated for metastatic ovarian cancer for the last few years. Previously she was doing so through peripheral IVs. Her IV access has worsened with time and she is here today for Port-A-Cath placement. Past Medical History Past Medical History: Cancer, GERD/Reflux, Hypertension Additional Past Medical History / Comment(s): ovarian cancer History of Any Multi-Drug Resistant Organisms: None Reported Past Surgical History: Appendectomy, Hysterectomy Additional Past Surgical History / Comment(s): BILATERAL OOPHERECTOMY -TOTAL HYSTERECTOMY, COLON BIOPSY WITH MASS REMOVED, LAPAROTOMY, Past Anesthesia/Blood Transfusion Reactions: No Reported Reaction Past Psychological History: Anxiety, Depression Smoking Status: Current some day smoker Past Alcohol Use History: Occasional Past Drug Use History: Marijuana, Prescription Drug Abuse - Past Family History Mother Family Medical History: No Reported History Medications and Allergies Home Medications Medication Instructions Recorded Confirmed Type Omeprazole [PriLOSEC] 20 mg PO DAILY PRN 01/06/20 10/25/20 History Ondansetron [Zofran] 4 mg PO Q4H PRN 01/06/20 10/25/20 History diphenhydrAMINE HCL [Benadryl] 25 mg PO DAILY PRN 01/06/20 10/25/20 History Dkxxgp-Dwjljeun-Fzdm 1 tab PO Q6H PRN 10/25/20 History Hydrocodone/Acetaminophen [[place] 1 tab PO Q6HR PRN 10/25/20 10/25/20 History 7.5-325] Metoprolol Tartrate [Lopressor] 12.5 mg PO BID 10/25/20 10/25/20 History Cyanocobalamin [Vitamin B-12] 500 mcg PO DAILY 10/26/20 10/26/20 History Allergies Allergy/AdvReac Type Severity Reaction Status Date / Time No Known Allergies Allergy Verified 10/29/20 08:05 Surgical - Exam Vital Signs Temp Pulse Resp BP Pulse Ox 97.1 F L 90 16 113/67 98 10/29/20 08:15 10/29/20 08:15 10/29/20 08:15 10/29/20 08:15 10/29/20 08:15 Physical exam: General: Well-developed, well-nourished HEENT: Normocephalic, sclerae nonicteric Abdomen: Nontender, nondistended Extremities: No edema Neuro: Alert and oriented Assessment and Plan (1) Ovarian cancer Narrative/Plan: 44-year-old female with ovarian cancer. We'll proceed with Port-A-Cath placement at this time. Risks of bleeding, infection, DVT, pneumothorax, catheter malfunction, anesthesia related complications were discussed. The patient understands and wishes to proceed. Current Visit: Yes Status: Acute Code(s): C56.9 - MALIGNANT NEOPLASM OF UNSPECIFIED OVARY SNOMED Code(s): 843257220
[2020-10-29] MEDS ORDERED: PROPOFOL 10 MG/ML 20 ML VIAL IV ONE (08:57)
[2020-10-29] MEDS ORDERED: MIDAZOLAM 2 MG/2 ML VIAL ONE (08:57)
[2020-10-29] MEDS ORDERED: HYDROmorphone (PF) 1 MG/ML ONE (08:57)
[2020-10-29] MEDS ORDERED: fentaNYL (PF) 50 MCG/ML 2 ML AMP ONE (08:57)
[2020-10-29] MEDS ORDERED: LIDOCAINE 1% INJ 10MG/ML (20 ML MDV) ONE (08:57)
[2020-10-29] MEDS ORDERED: SODIUM CHLORIDE 0.9% 100 ML with ceFAZolin 2,000 MG IV ONE ×2 (09:18)
[2020-10-29] MEDS ORDERED: LIDOCAINE 1% INJ 10MG/ML (20 ML MDV) SQ ONE ×2 (09:21)
[2020-10-29 09:55] VITALS: TEMP 98
[2020-10-29] MEDS ORDERED: HYDROcodone/APAP 5-325MG 1 EACH TAB PO PRN (10:01)
[2020-10-29] MEDS ORDERED: NALOXONE 0.4 MG/ML 1 ML VIAL IV PRN (10:01)
--- NOTE | 2020-10-29 10:03 | P.OP ---
Date of Procedure: 10/29/20 Procedure(s) Performed: PREOPERATIVE DIAGNOSIS: Ovarian cancer POSTOPERATIVE DIAGNOSIS: Same PROCEDURE: Port-A-Cath placement with fluoroscopic and ultrasound guidance SURGEON: Criselda EBL: Minimal ANESTHESIA: General COMPLICATIONS: None OPERATIVE PROCEDURE: Patient was brought and placed on the operative table in the supine position. The patient was sedated per anesthesia that time. The chest and neck were prepped and draped in usual sterile fashion. The ultrasound probe was used to identify the location of the right internal jugular vein. The skin was localized with lidocaine. The Seldinger needle was advanced into the IJ under ultrasound guidance. The wire was advanced through the needle under fluoroscopic guidance into the superior vena cava. A port pocket was created in the right infraclavicular location. The catheter was tunneled from the wire entrance site to the port pocket. The port was then connected to the catheter. The dilator introducer was threaded over the guidewire. The guidewire and dilator were then removed. The catheter was advanced through the introducer and introducer was then removed. The tip was seen to be in the right atrial junction via fluoroscopy. A picture of the radiograph showing the tip at the radial digital junction was taken. Port was flushed with both saline and a Hep- Lock solution. There was good flow both in and out of the port. The port was sutured in underlying tissues using 3-0 silk sutures. The subcutaneous tissues were reapproximated using 3-0 Vicryl sutures and the skin at both locations using 4-0 Monocryl sutures. Skin glue and sterile dressings then applied. DISPOSITION: Stable to recovery room
[2020-10-29] MEDS ORDERED: HYDROmorphone 0.5 MG/0.5 ML SYRINGE IVP ONE (10:28)
--- NOTE | 2020-10-29 10:45 | XR ---
EXAMINATION TYPE: XR chest 1V DATE OF EXAM: 10/29/2020 COMPARISON: 03/11/2018 HISTORY: Mediport placement TECHNIQUE: Single frontal view of the chest is obtained. FINDINGS: There is no focal air space opacity, pleural effusion, or pneumothorax seen. The cardiac silhouette size is within normal limits. The osseous structures are intact. Mediport catheter seen with the tip overlying the SVC. IMPRESSION: 1. Tip of the Mediport overlies the SVC. No sizable pneumothorax
[2020-10-29 11:40] VITALS: BP 119/63; PULSE 71
--- NOTE | 2020-10-29 12:44 | FL ---
EXAMINATION TYPE: FL guided central line placemt HISTORY: Fluoroscopy time Impression: 1. Fluoroscopy support provided to the referring physician. 6 seconds of fluoroscopy provided.
== END 2020-10-29 11:41 | disposition home or self-care (01) ==
LOC: OR 07:47
PROVIDERS: ATTEND Surgery
DX: C79.9 Secondary malignant neoplasm of unspecified site (principal); C56.9 Malignant neoplasm of unspecified ovary; I10 Essential (primary) hypertension; K21.9 Gastro-esophageal reflux disease without esophagitis; F41.9 Anxiety disorder, unspecified; F32.9 Major depressive disorder, single episode, unspecified; F12.90 Cannabis use, unspecified, uncomplicated; F17.210 Nicotine dependence, cigarettes, uncomplicated; Z79.899 Other long term (current) drug therapy
CPT/HCPCS: 77001; 71045; 36561; C1788; J2250; J1100; J2405; J0690; J2001; J3010; J1170 ×2; J1642; J2704; J1644

== ENCOUNTER → 2020-10-30 | Outpatient (CLI) | payer BC ==
[2020-10-30 15:48] LABS: African American GFR (CKD) >90 (>60 ml/min/1.73 sqM); Blood Urea Nitrogen 10 mg/dL (7-17); Non-African American GFR(CKD) >90 (>60 ml/min/1.73 sqM)
--- NOTE | 2020-10-31 07:07 | CT ---
EXAMINATION TYPE: CT ChestAbdPelvis w con DATE OF EXAM: 10/30/2020 COMPARISON: CT abdomen and pelvis July 13, 2020 and older studies HISTORY: f/u ovarian ca CT DLP: 1714 mGycm. Automated Exposure Control for Dose Reduction was Utilized. CONTRAST: CT scan of the thorax, abdomen and pelvis is performed with IV Contrast, patient injected with 100 mL of Isovue 300. FINDINGS: LUNGS: The lungs are grossly clear, there is no concerning new parenchymal mass or nodule identified. There is no pleural effusion or pneumothorax seen. The tracheobronchial tree is patent. MEDIASTINUM: There are no greater than 1 cm hilar or mediastinal lymph nodes. No cardiomegaly or pe ricardial effusion is seen. OTHER: New right internal jugular Mediport catheter terminates in SVC. LIVER/GB: No significant abnormality is appreciated. PANCREAS: No significant abnormality is seen. SPLEEN: Stable small anterior lateral splenule axial image 63. ADRENALS: No significant abnormality is seen. KIDNEYS: No significant abnormality is seen. BOWEL: Oral contrast reaches level of the distal left colon. No suspicious small or large bowel dilat ation. GENITAL ORGANS: Uterus is surgically absent. Left-sided pelvic phleboliths redemonstrated. LYMPH NODES: No greater than 1cm abdominal or pelvic lymph nodes are appreciated. OSSEOUS STRUCTURES: Moderate disc space narrowing with posterior spurring L5-S1 level. OTHER: Focal scarring over the left mid to lower anterior abdominal wall axial image 88. IMPRESSION: No new mass or adenopathy to suggest neoplastic recurrence.
== END | disposition home or self-care (01) ==
LOC: RADCTMAIN 14:57
PROVIDERS: ATTEND Internal Medicine Hematology & Oncology
DX: C56.9 Malignant neoplasm of unspecified ovary (principal)
CPT/HCPCS: 82565; 84520; 71260; 74177; 36415; Q9967

== ENCOUNTER → 2021-03-18 | Outpatient (CLI) | payer BC ==
--- NOTE | 2021-03-20 09:44 | MM ---
Reason for exam: screening (asymptomatic). Last mammogram was performed 1 year and 11 months ago. History: Patient is postmenopausal, has history of ovarian cancer at age 41, and is nulliparous. Physical Findings: A clinical breast exam by your physician is recommended on an annual basis and results should be correlated with mammographic findings. MG Screening Mammo w CAD Bilateral CC and MLO view(s) were taken. Prior study comparison: April 18, 2019, bilateral MG screening mammo w CAD. The breast tissue is heterogeneously dense. This may lower the sensitivity of mammography. No significant changes when compared with prior studies. ASSESSMENT: Benign, BI-RAD 2 RECOMMENDATION: Routine screening mammogram of both breasts in 1 year.
== END | disposition home or self-care (01) ==
LOC: RADMAMWWP 14:52
PROVIDERS: ATTEND Obstetrics & Gynecology Obstetrics
DX: Z12.31 Encounter for screening mammogram for malignant neoplasm of breast (principal)
CPT/HCPCS: 77067

== ENCOUNTER → 2022-04-29 | Outpatient (CLI) | payer BC ==
[2022-04-29 14:10] LABS: African American GFR (CKD) >90 (>60 ml/min/1.73 sqM); Blood Urea Nitrogen 9 mg/dL (7-17); Non-African American GFR(CKD) >90 (>60 ml/min/1.73 sqM)
--- NOTE | 2022-04-29 15:30 | CT ---
"EXAMINATION TYPE: CT ChestAbdPelvis wo/w con DATE OF EXAM: 04/29/2022 COMPARISON: Most recent CT October 30, 2020 and older studies HISTORY: Metastatic CA. Hx of ovarian CA CT DLP: 1784.6 mGycm. Automated Exposure Control for Dose Reduction was Utilized. CONTRAST: CT scan of the thorax, abdomen and pelvis is performed with oral and without and with IV Contrast, pa tient injected with 100cc mL of Isovue 300. FINDINGS: LUNGS: There is new moderate to large size right pleural effusion and associated right lung compressi ve atelectasis. There is new small to moderate size left pleural effusion and associated left lung co mpressive atelectasis. Additional areas of bilateral groundglass opacity are present. MEDIASTINUM: There are no new greater than 1 cm hilar or mediastinal lymph nodes. No cardiomegaly o r pericardial effusion is seen. OTHER: Stable right internal jugular Mediport catheter. LIVER/GB: New adjacent ascites. PANCREAS: No significant abnormality is seen. SPLEEN: Stable small anterior lateral splenule axial image 62 current study. ADRENALS: No significant abnormality is seen. KIDNEYS: No renal stones seen bilaterally. Symmetric cortical medullary uptake and excretion on postc ontrast images. No hydronephrosis seen bilaterally. Bladder left of midline. BOWEL: Oral contrast reaches level of the rectum. No suspicious small or large bowel dilatation. GENITAL ORGANS: Uterus is surgically absent. Left-sided pelvic phleboliths redemonstrated. LYMPH NODES: No greater than 1cm abdominal or pelvic lymph nodes are appreciated. OSSEOUS STRUCTURES: Moderate disc space narrowing with posterior spurring L5-S1 level is redemonstrat ed. OTHER: There is no nonsimple fluid filling the pelvis with mass effect on the bladder axial image 108 for reference, Hounsfield units average near 22. Fluid does not layer dependently and extends anteri or and surrounding the liver. There is left paracolic and pericolic component in the left lower quadr ant. Smaller component left upper to mid abdomen has slight linear and slightly nodular appearance. IMPRESSION: New Small to moderate amount of nonsimple abdominal and pelvic ascites. Neoplastic intra peritoneal recurrence needs to be considered. There are new moderate to large size right pleural effu homar and small to moderate-sized left pleural effusions noted. A Yellow level critical message alert has been initiated for Toi Stephen MD via the [employer] 36 0 | Critical Results System on 04/29/2022 3:27 PM. This message alert has been sent to Toi Stephen MD via the preferences provided by the clinician for the receipt of Radiology Critical Findings. [facility] ID [id number]."
== END | disposition home or self-care (01) ==
LOC: RADCTMAIN 13:06
PROVIDERS: ATTEND Internal Medicine Hematology & Oncology
DX: J90 Pleural effusion, not elsewhere classified (principal); D61.811 Other drug-induced pancytopenia; R18.8 Other ascites; Z85.43 Personal history of malignant neoplasm of ovary
CPT/HCPCS: 82565; 84520; 71270; 74178; J1642; Q9967 ×2

== ENCOUNTER 2022-04-30 12:22 | Inpatient (IN) | payer BC ==
[2022-04-30 14:24] LABS: Basophils # (A) 0.1 k/uL (0-0.2); Basophils % (A) 1 %; Eosinophils # (A) 0.1 k/uL (0-0.7); Eosinophils % (A) 2 %; HCT 38.7 % (34.0-46.0); HGB 12.7 gm/dL (11.4-16.0); Lymphocytes # (A) 0.9 k/uL (1.0-4.8); Lymphocytes % (A) 14 %; MCH 26.9 pg (25.0-35.0); MCHC 32.7 g/dL (31.0-37.0); MCV 82.3 fL (80.0-100.0); Mean Platelet Volume 7.6; Monocytes # (A) 0.4 k/uL (0-1.0); Monocytes % (A) 6 %; Neutrophils # (A) 4.5 k/uL (1.3-7.7); Neutrophils % (A) 75 %; Platelet Count 319 k/uL (150-450); RDW 15.2 % (11.5-15.5); WBC 6.1 k/uL (3.8-10.6)
[2022-04-30 14:38] LABS: ALT 24 U/L (4-34); AST 28 U/L (14-36); African American GFR (CKD) >90 (>60 ml/min/1.73 sqM); Alkaline Phosphatase 111 U/L (38-126); Anion Gap 11 mmol/L; Blood Urea Nitrogen 9 mg/dL (7-17); Calcium 8.9 mg/dL (8.4-10.2); Carbon Dioxide 27 mmol/L (22-30); Chloride 95 mmol/L (98-107); Glucose 88 mg/dL (74-99); Non-African American GFR(CKD) >90 (>60 ml/min/1.73 sqM); Potassium 4.2 mmol/L (3.5-5.1); Sodium 133 mmol/L (137-145); Total Bilirubin 0.3 mg/dL (0.2-1.3)
--- NOTE | 2022-04-30 14:42 | ED ---
SOB HPI - General Chief Complaint: Shortness of Breath Stated Complaint: sob Time Seen by Provider: 04/30/22 13:07 Source: patient, RN notes reviewed Mode of arrival: ambulatory Limitations: no limitations - History of Present Illness Initial Comments: This is a 46-year-old female with a past medical history of ovarian cancer who presents to the emergency department for difficulty breathing. Symptoms have been the most prominent over the last 1-2 weeks. She had a computed tomography scan of the abdomen and pelvis done yesterday, and her primary care provider instructed her to come to the emergency department this morning due to fluid being in the abdomen and pelvis. She is a patient of Dr. Stephen and has been treated for ovarian cancer for four years. She has never had problems with fluid buildup such as pleural effusions or ascites in the past. Currently states that she feels very short of breath and has been on rounds of antibiotics and steroids with no relief. Her abdomen feels somewhat bloated and gassy, however it is not severely painful. Denies any associated nausea or vomiting. Denies any fevers, chills, sore throat, chest pain, palpitations, nausea, vomiting, diarrhea, back pain, or headaches. MD Complaint: shortness of breath Onset/Timin -: week(s) - Related Data Home Medications Medication Instructions Recorded Confirmed Ondansetron [Zofran] 4 mg PO Q4H PRN 01/06/20 04/30/22 Metoprolol Tartrate [Lopressor] 12.5 mg PO BID 10/25/20 04/30/22 ALPRAZolam [Xanax] 0.5 mg PO HS 04/30/22 04/30/22 Albuterol Inhaler [Ventolin Hfa 2 puff INHALATION RT-Q4H PRN 04/30/22 04/30/22 Inhaler] Cyanocobalamin (Vitamin B-12) 2,500 mcg PO DAILY 04/30/22 04/30/22 [Vitamin B-12] FLUoxetine HCL [Sarafem] 60 mg PO DAILY 04/30/22 04/30/22 Metoclopramide [Reglan] 10 mg PO Q6H PRN 04/30/22 04/30/22 Vitamin D3(Unknown) 1 tab PO DAILY 04/30/22 04/30/22 hydrOXYzine HCL [Atarax] 25 mg PO BID 04/30/22 04/30/22 Allergies Allergy/AdvReac Type Severity Reaction Status Date / Time hydromorphone [From Dilaudid] Allergy Unknown Verified 04/30/22 15:17 Review of Systems ROS Statement: Those systems with pertinent positive or pertinent negative responses have been documented in the HPI. ROS Other: All systems not noted in ROS Statement are negative. Past Medical History Past Medical History: Cancer Additional Past Medical History / Comment(s): ovarian cancer metastasis History of Any Multi-Drug Resistant Organisms: None Reported Past Surgical History: Hysterectomy Additional Past Surgical History / Comment(s): BILATERAL OOPHERECTOMY -TOTAL HYSTERECTOMY, COLON BIOPSY WITH MASS REMOVED, LAPAROTOMY, Past Anesthesia/Blood Transfusion Reactions: No Reported Reaction Past Psychological History: Anxiety, Depression Smoking Status: Vaper Past Alcohol Use History: Occasional Past Drug Use History: Marijuana - Past Family History Mother Family Medical History: No Reported History General Exam Limitations: no limitations General appearance: alert, in no apparent distress Head exam: Present: atraumatic, normocephalic, normal inspection Respiratory exam: Present: other (Muffled lung sounds bilaterally, right worse than left.) Cardiovascular Exam: Present: regular rate, normal rhythm, normal heart sounds. Absent: systolic murmur, diastolic murmur, rubs, gallop, clicks GI/Abdominal exam: Present: soft, distended (Mild), normal bowel sounds Neurological exam: Present: alert, oriented X3, CN II-XII intact Psychiatric exam: Present: normal affect, normal mood Skin exam: Present: warm, dry, intact, normal color. Absent: rash Course Vital Signs 04/30/22 04/30/22 12:59 15:11 Temperature 98.1 F Pulse Rate 90 77 Respiratory 20 16 Rate Blood Pressure 130/81 119/73 O2 Sat by Pulse 95 95 Oximetry Medical Decision Making - Medical Decision Making This is a 46-year-old female who presents to the emergency department for shortness of breath. Baseline lab work was obtained revealing a critically elevated PTT. This value was repeated and noted to be much less elevated. Computed tomography scan of the abdomen and pelvis obtained yesterday was reviewed revealing large bilateral pleural effusions and small to moderate abdominal and pelvic ascites. There was also noted concern for neoplastic intraperitoneal recurrence. Patient will be admitted to medicine with IR and oncology consult for thoracentesis and paracentesis. This case was discussed in detail with the attending ED physician. Presentation, findings, and treatment plan discussed in detail as well. - Lab Data Result diagrams: 04/30/22 13:55 04/30/22 13:55 Lab Results 04/30/22 04/30/22 04/30/22 Range/Units 13:55 13:55 13:55 WBC 6.1 (3.8-10.6) k/uL RBC 4.70 (3.80-5.40) m/uL Hgb 12.7 (11.4-16.0) gm/dL Hct 38.7 (34.0-46.0) % MCV 82.3 (80.0-100.0) fL MCH 26.9 (25.0-35.0) pg MCHC 32.7 (31.0-37.0) g/dL RDW 15.2 (11.5-15.5) % Plt Count 319 (150-450) k/uL MPV 7.6 Neutrophils % 75 % Lymphocytes % 14 % Monocytes % 6 % Eosinophils % 2 % Basophils % 1 % Neutrophils # 4.5 (1.3-7.7) k/uL Lymphocytes # 0.9 L (1.0-4.8) k/uL Monocytes # 0.4 (0-1.0) k/uL Eosinophils # 0.1 (0-0.7) k/uL Basophils # 0.1 (0-0.2) k/uL PT 10.8 (9.0-12.0) sec INR 1.0 (<1.2) APTT >200.0 H* (22.0-30.0) sec Sodium 133 L (137-145) mmol/L Potassium 4.2 (3.5-5.1) mmol/L Chloride 95 L (98-107) mmol/L Carbon Dioxide 27 (22-30) mmol/L Anion Gap 11 mmol/L BUN 9 (7-17) mg/dL Creatinine 0.43 L (0.52-1.04) mg/dL Est GFR (CKD-EPI)AfAm >90 (>60 ml/min/1.73 sqM) Est GFR (CKD-EPI)NonAf >90 (>60 ml/min/1.73 sqM) Glucose 88 (74-99) mg/dL Calcium 8.9 (8.4-10.2) mg/dL Total Bilirubin 0.3 (0.2-1.3) mg/dL AST 28 (14-36) U/L ALT 24 (4-34) U/L Alkaline Phosphatase 111 (38-126) U/L Total Protein 7.0 (6.3-8.2) g/dL Albumin 4.0 (3.5-5.0) g/dL - Radiology Data Radiology results: report reviewed, image reviewed Disposition Clinical Impression: Malignant pleural effusion, Malignant ascites, Ovarian cancer Disposition: ADMITTED IP TO THIS HOSP
[2022-04-30 14:47] LABS: Prothrombin Time 10.8 sec (9.0-12.0)
[2022-04-30] MEDS ORDERED: NALOXONE 0.4 MG/ML 1 ML VIAL IV PRN (15:29)
[2022-04-30] MEDS ORDERED: IBUPROFEN 400 MG TAB PO PRN (15:29)
[2022-04-30] MEDS ORDERED: ACETAMINOPHEN TAB 325 MG TAB PO PRN (15:29)
[2022-04-30] MEDS ORDERED: METOCLOPRAMIDE 10 MG TAB PO PRN (15:34)
[2022-04-30] MEDS: ONDANSETRON 4 MG/2 ML VIAL IVP PRN (18:33)
--- NOTE | 2022-04-30 18:44 | P.HPIM ---
History of Present Illness This is a pleasant 42 years old female with past medical history of ovarian cancer that she follows up with Dr. Stephen her oncologist. Presents with dyspnea for about one week with a dry cough but no chest pain Postop is bloated with feeling of reflux and indigestion that smoked resolved with medication She has no vomiting or diarrhea No urinary complaint like dysuria or urgency Her oncologist referred her for CT of the abdomen yesterday and after she follow up with her PCP Dr. Alexis referred her to the hospital for pleural effusion of ascites, new onset. Patient of note she supposed to follow-up with oncologist tomorrow to start chemotherapy. She denies smoking, she drinks about 3 times per week, and she uses marijuana. Vitals are stable. CBC is unremarkable. BMP showed sodium 133, rest of BMP creatinine, liver enzymes are unremarkable. CT of the abdomen and pelvis with and without contrast done yesterday showing: Moderate to large sized right pleural effusion and associated right lung compressive atelectasis. There is a new small to moderate sized left pleural effusion and associated left lung compressive atelectasis. Additional areas of bilateral ground glass opacity are present. Moderate amount of abdominal and pelvic ascites. Metastatic intra-peritoneal recurrence need to be considered. Review of Systems Review of systems CONSTITUTIONAL: No fever, no malaise, no fatigue. HEENT: No recent visual problems or hearing problems. Denied any sore throat. CARDIOVASCULAR: No orthopnea, PND, no palpitations, no syncope. PULMONARY: No chest wall tenderness, no hemoptysis. GASTROINTESTINAL: No diarrhea, no nausea, no vomiting, no abdominal pain. Normoactive bowel sounds. NEUROLOGICAL: No headaches, no weakness, no numbness. HEMATOLOGICAL: Denies any bleeding or petechiae. GENITOURINARY: Denies any burning micturition, frequency, or urgency. MUSCULOSKELETAL/RHEUMATOLOGICAL: Denies any joint pain, swelling, or any muscle pain. ENDOCRINE: Denies any polyuria or polydipsia. Past Medical History Past Medical History: Cancer Additional Past Medical History / Comment(s): ovarian cancer metastasis History of Any Multi-Drug Resistant Organisms: None Reported Past Surgical History: Hysterectomy Additional Past Surgical History / Comment(s): BILATERAL OOPHERECTOMY -TOTAL HYSTERECTOMY, COLON BIOPSY WITH MASS REMOVED, LAPAROTOMY, Past Anesthesia/Blood Transfusion Reactions: No Reported Reaction Past Psychological History: Anxiety, Depression Smoking Status: Vaper Past Alcohol Use History: Occasional Past Drug Use History: Marijuana - Past Family History Mother Family Medical History: No Reported History Medications and Allergies Home Medications Medication Instructions Recorded Confirmed Type Ondansetron [Zofran] 4 mg PO Q4H PRN 01/06/20 04/30/22 History Metoprolol Tartrate [Lopressor] 12.5 mg PO BID 10/25/20 04/30/22 History ALPRAZolam [Xanax] 0.5 mg PO HS 04/30/22 04/30/22 History Albuterol Inhaler [Ventolin Hfa 2 puff INHALATION RT-Q4H PRN 04/30/22 04/30/22 History Inhaler] Cyanocobalamin (Vitamin B-12) 2,500 mcg PO DAILY 04/30/22 04/30/22 History [Vitamin B-12] FLUoxetine HCL [Sarafem] 60 mg PO DAILY 04/30/22 04/30/22 History Metoclopramide [Reglan] 10 mg PO Q6H PRN 04/30/22 04/30/22 History Vitamin D3(Unknown) 1 tab PO DAILY 04/30/22 04/30/22 History hydrOXYzine HCL [Atarax] 25 mg PO BID 04/30/22 04/30/22 History Allergies Allergy/AdvReac Type Severity Reaction Status Date / Time hydromorphone [From Dilaudid] Allergy Unknown Verified 04/30/22 15:17 Physical Exam Vitals: Vital Signs Temp Pulse Pulse Resp BP BP Pulse Ox 04/30/22 18:09 98 F 92 16 114/74 93 L 04/30/22 15:11 77 16 119/73 95 04/30/22 12:59 98.1 F 90 20 130/81 95 Intake and Output 04/30/22 04/30/22 04/30/22 06:59 14:59 22:59 Other: Weight 73.482 kg GENERAL: The patient is alert and oriented x3, not in any acute distress. Well developed, well nourished. HEENT: Pupils are round and equally reacting to light. EOMI. No scleral icterus. No conjunctival pallor. Normocephalic, atraumatic. No pharyngeal erythema. No thyromegaly. CARDIOVASCULAR: S1 and S2 present. No murmurs, rubs, or gallops. -PULMONARY: Chest is clear to auscultation, no wheezing or crackles. Decreased breaths sounds on the right side more -ABDOMEN: Soft, nontender, mildly distended, normoactive bowel sounds. No palpable organomegaly. MUSCULOSKELETAL: No joint swelling or deformity. EXTREMITIES: No cyanosis, clubbing, or pedal edema. NEUROLOGICAL: Gross neurological examination did not reveal any focal deficits. SKIN: No rashes. no petechiae. Results CBC & Chem 7: 04/30/22 13:55 04/30/22 13:55 Labs: Abnormal Lab Results - Last 24 Hours (Table) 04/30/22 04/30/22 04/30/22 Range/Units 13:55 13:55 13:55 Lymphocytes # 0.9 L (1.0-4.8) k/uL APTT >200.0 H* (22.0-30.0) sec Sodium 133 L (137-145) mmol/L Chloride 95 L (98-107) mmol/L Creatinine 0.43 L (0.52-1.04) mg/dL 04/30/22 Range/Units Unknown Lymphocytes # (1.0-4.8) k/uL APTT 45.0 H (22.0-30.0) sec Sodium (137-145) mmol/L Chloride (98-107) mmol/L Creatinine (0.52-1.04) mg/dL Assessment and Plan Assessment: Bilateral pleural effusion, rule out malignant effusion, right more than left Abdominal and pelvic ascites, rule out intraperitoneal metastasis. Ovarian cancer, with a plan start chemotherapy soon, currently on hold Substance abuse with marijuana Plan: Continue with pain management Oncology team consult Interventional radiologist team consulted in the ER Labs and medication were reviewed.. Continue same treatment. Continue with symptomatic treatment. Resume home medication. Monitor lytes and vitals. DVT and GI prophylaxis. Further recommendations as per clinical course of the pat ient DVT prophylaxis: Subcutaneous heparin GI Prophylaxis: Ppi Prognosis is guarded
[2022-04-30] MEDS: HYDROcodone/APAP 5-325MG 1 EACH TAB PO PRN (19:44)
[2022-04-30] MEDS: METOPROLOL TARTRATE 12.5 MG TAB PO SCH (21:33)
[2022-04-30] MEDS: ALPRAZolam 0.5 MG TAB PO SCH (21:33)
[2022-04-30] MEDS: hydrOXYzine HCL 25 MG TAB PO SCH (21:34)
[2022-04-30] MEDS: HEPARIN SODIUM,PORCINE/PF 5,000 UNIT/0.5 ML SYRINGE SQ SCH (21:34)
[2022-05-01] MEDS: PANTOPRAZOLE 40 MG/10 ML VIAL IV SCH (04:00)
[2022-05-01 07:16] LABS: Partial Thromboplastin Time >200.0 sec (22.0-30.0)
[2022-05-01] MEDS: HEPARIN SODIUM,PORCINE/PF 5,000 UNIT/0.5 ML SYRINGE SQ SCH ×2 (08:05→20:40)
[2022-05-01] MEDS ORDERED: VITAMIN D3 PO SCH (09:00)
[2022-05-01] MEDS: METOPROLOL TARTRATE 12.5 MG TAB PO SCH ×2 (10:03→20:40)
[2022-05-01] MEDS: CYANOCOBALAMIN 500 MCG TAB PO SCH (12:35)
[2022-05-01] MEDS: FLUoxetine HCL 20 MG CAP PO SCH (12:35)
[2022-05-01] MEDS: hydrOXYzine HCL 25 MG TAB PO SCH ×2 (12:36→20:39)
--- NOTE | 2022-05-01 13:25 | US ---
EXAMINATION TYPE: US chest DATE OF EXAM: 05/01/2022 COMPARISON: CXR, and CT CLINICAL HISTORY: to assess for fluid pocket. Effusions TECHNIQUE: Targeted ultrasound of the posterior lower bilateral hemithoraces EXAM MEASUREMENTS: Right Pleural Effusion pocket size: 17.4 cm Right skin surface to fluid distance: 5.4 cm Left Pleural Effusion pocket size: 9.3 cm Left skin surface to fluid distance: 3.7 cm Right side marked for possible thoracentesis outside the dept. Left side marked for possible thoracentesis outside the dept. Pulmonologists are able to review the images in the patient?s EMR. IMPRESSIONS: Bilateral posterior pleural effusions
--- NOTE | 2022-05-01 13:54 | US ---
Ultrasound-guided paracentesis. DATE OF EXAM: 05/01/2022 CLINICAL HISTORY: Ascites The procedure was discussed with the patient. The risks, complications, benefits, and alternatives we re discussed and any questions were answered. Informed consent was obtained. The patient was placed s upine on the ultrasound table and prepped and draped in the usual sterile fashion. All elements of maximal barrier technique were utilized. Under ultrasound guidance, access into the right lower quadrant was obtained, via the paracentesis catheter system and direct ultrasound guidanc e. Approximately 1.2 liters of straw-colored fluid was removed. The patient was stable throughout the pr ocedure and remained stable upon discharge from Department of Radiology. IMPRESSION: Successful paracentesis under ultrasound guidance.
--- NOTE | 2022-05-01 14:43 | P.PN ---
Subjective Progress Note Date: 05/01/22 This is a pleasant 42 years old female with past medical history of ovarian cancer that she follows up with Dr. Stephen her oncologist. Presents with dyspnea for about one week with a dry cough but no chest pain Postop is bloated with feeling of reflux and indigestion that smoked resolved with medication She has no vomiting or diarrhea No urinary complaint like dysuria or urgency Her oncologist referred her for CT of the abdomen yesterday and after she follow up with her PCP Dr. Alexis referred her to the hospital for pleural effusion of ascites, new onset. Patient of note she supposed to follow-up with oncologist tomorrow to start chemotherapy. She denies smoking, she drinks about 3 times per week, and she uses marijuana. Vitals are stable. CBC is unremarkable. BMP showed sodium 133, rest of BMP creatinine, liver enzymes are unremarkable. CT of the abdomen and pelvis with and without contrast done yesterday showing: Moderate to large sized right pleural effusion and associated right lung compressive atelectasis. There is a new small to moderate sized left pleural effusion and associated left lung compressive atelectasis. Additional areas of bilateral ground glass opacity are present. Moderate amount of abdominal and pelvic ascites. Metastatic intra-peritoneal recurrence need to be considered. 05/01/2022 Patient is seen and evaluated in follow-up this morning continues to be short of breath with volume overload. Interventional radiology consulted and plans for paracentesis today and currently nothing by mouth. Patient with pleural effusions bilaterally initially consulted pulmonary although they recommend consulted and interventional radiology for thoracentesis. Interventional radiology unable to perform thoracentesis on the same day is a paracentesis and has scheduled for chest ultrasound for possible thoracentesis in 24 hours. Patient is afebrile denies chest pain or palpitations. Patient does report she is short of breath with exertion and currently maintained on 2-3 L. Patient reports she does not wear any oxygen in the outpatient setting. Patient also with some abdominal distention and bloating. Review of systems: Constitutional: No reports of fatigue, fever, or chills Cardiovascular: No reports of chest pain or palpitations Respiratory: reports of shortness of breath GI: No reports of nausea, vomiting, or diarrhea : No reports of dysuria or retention Neurovascular: No reports of weakness or numbness All medications have been reviewed Physical exam: GENERAL: The patient is alert and oriented x3, not in any acute distress. Well developed, well nourished. HEENT: Pupils are round and equally reacting to light. EOMI. No scleral icterus. No conjunctival pallor. Normocephalic, atraumatic. No pharyngeal erythema. No thyromegaly. CARDIOVASCULAR: S1 and S2 present. No murmurs, rubs, or gallops. -PULMONARY: Chest is clear to auscultation, no wheezing or crackles. Decreased breaths sounds on the right side more -ABDOMEN: Soft, nontender, mildly distended, normoactive bowel sounds. No palpable organomegaly. MUSCULOSKELETAL: No joint swelling or deformity. EXTREMITIES: No cyanosis, clubbing, or pedal edema. NEUROLOGICAL: Gross neurological examination did not reveal any focal deficits. SKIN: No rashes. no petechiae. Assessment: Bilateral pleural effusion, rule out malignant effusion, right more than left Abdominal and pelvic ascites, rule out intraperitoneal metastasis. Ovarian cancer, with a plan start chemotherapy soon, currently on hold Substance abuse with marijuana DVT prophylaxis: Subcutaneous heparin GI Prophylaxis: Ppi Full code Plan: Continue with pain management Oncology team following Interventional radiologist consulted with plans for paracentesis today. Interventional radiology unable to perform thoracentesis on same day and initially consulted pulmonary for pleural effusions although they are recommending IR consult for thoracentesis. Interventional radiology placed an order for chest ultrasound and will likely perform thoracentesis in 24 hours. Paracentesis labs were sent for analysis. The patient is currently maintained on 2-3 L via nasal cannula continues with shortness of breath recommend wean FiO2 as tolerated. Prognosis is guarded The impression and plan of care has been dictated by Veronika Bucio, Nurse Practitioner as directed. Dr. Garfield MD I have performed a history and examination and MDM of this patient, discussed the same with the dictator, and agree with the dictator's assessment and plan as written ,documented as a scribe. Based on total visit time, I have performed more than 50% of the visit. Objective - Vital Signs Vital signs: Vital Signs Temp 98.5 F 05/01/22 08:00 Pulse 81 05/01/22 10:00 Resp 18 05/01/22 08:00 BP 132/78 05/01/22 10:00 Pulse Ox 91 L 05/01/22 08:00 FiO2 Intake & Output 04/30/22 05/01/22 05/01/22 18:59 06:59 18:59 Intake Total 600 Balance 600 Weight 73.482 kg Intake: Oral 600 Other: Voiding Method Toilet # Voids 2 - Labs CBC & Chem 7: 04/30/22 13:55 04/30/22 13:55 Labs: Abnormal Lab Results - Last 24 Hours (Table) 04/30/22 04/30/22 04/30/22 Range/Units 13:55 13:55 13:55 Lymphocytes # 0.9 L (1.0-4.8) k/uL APTT >200.0 H* (22.0-30.0) sec Sodium 133 L (137-145) mmol/L Chloride 95 L (98-107) mmol/L Creatinine 0.43 L (0.52-1.04) mg/dL 04/30/22 Range/Units Unknown Lymphocytes # (1.0-4.8) k/uL APTT 45.0 H (22.0-30.0) sec Sodium (137-145) mmol/L Chloride (98-107) mmol/L Creatinine (0.52-1.04) mg/dL
[2022-05-01] MEDS: HYDROcodone/APAP 5-325MG 1 EACH TAB PO PRN ×2 (15:52→20:40)
[2022-05-01] MEDS: ONDANSETRON 4 MG/2 ML VIAL IVP PRN (15:52)
--- NOTE | 2022-05-01 18:11 | P.CONS ---
History of Present Illness - Reason for Consult Consult date: 05/01/22 Ascite, ovarina adenocarcinoma Requesting physician: Jake E Sheet - Chief Complaint SOB - History of Present Illness Josephine is a very pleasant 46-year-old female patient of Dr. Toi Stephen with a PMH including anxiety and GERD, diagnosed with ovarian adenocarcinoma in 2018. Malignancy history is very extensive. She has been on multiple therapies, had several recurrences, never had debulking or definitive surgery. In November was seen at the [facility], her CA 125 had continued to rise, on repeat imaging there has been disease progression. 04/08/22 patient was again reevaluated at [facility], evidence of disease progression. She is due to start Gemzar and Avastin soon. Had IV iron 04/21 and 04/25. Patient is admitted currently with shortness of breath 1 week, abdominal bloating. She denies fevers, nausea, vomiting, chest pain, palpitations, acute changes in bowel or bladder habits, swelling in the lower extremities, new or unusual pain, no rashes or bleeding. Review of Systems 10 point review of systems is negative except as stated in HPI Past Medical History Past Medical History: Cancer Additional Past Medical History / Comment(s): ovarian cancer metastasis History of Any Multi-Drug Resistant Organisms: None Reported Past Surgical History: Hysterectomy Additional Past Surgical History / Comment(s): BILATERAL OOPHERECTOMY -TOTAL HYSTERECTOMY, COLON BIOPSY WITH MASS REMOVED, LAPAROTOMY, Past Anesthesia/Blood Transfusion Reactions: No Reported Reaction Past Psychological History: Anxiety, Depression Smoking Status: Vaper Past Alcohol Use History: Occasional Past Drug Use History: Marijuana - Past Family History Mother Family Medical History: No Reported History Medications and Allergies Home Medications Medication Instructions Recorded Confirmed Type Ondansetron [Zofran] 4 mg PO Q4H PRN 01/06/20 04/30/22 History Metoprolol Tartrate [Lopressor] 12.5 mg PO BID 10/25/20 04/30/22 History ALPRAZolam [Xanax] 0.5 mg PO HS 04/30/22 04/30/22 History Albuterol Inhaler [Ventolin Hfa 2 puff INHALATION RT-Q4H PRN 04/30/22 04/30/22 History Inhaler] Cyanocobalamin (Vitamin B-12) 2,500 mcg PO DAILY 04/30/22 04/30/22 History [Vitamin B-12] FLUoxetine HCL [Sarafem] 60 mg PO DAILY 04/30/22 04/30/22 History Metoclopramide [Reglan] 10 mg PO Q6H PRN 04/30/22 04/30/22 History Vitamin D3(Unknown) 1 tab PO DAILY 04/30/22 04/30/22 History hydrOXYzine HCL [Atarax] 25 mg PO BID 04/30/22 04/30/22 History Allergies Allergy/AdvReac Type Severity Reaction Status Date / Time hydromorphone [From Dilaudid] Allergy Unknown Verified 04/30/22 15:17 Physical Exam Vitals: Vital Signs Temp Pulse Pulse Resp BP BP Pulse Ox 05/01/22 04:15 16 94 L 05/01/22 03:53 98.8 F 80 18 109/68 90 L 04/30/22 20:15 16 04/30/22 20:03 98.9 F 79 16 119/76 93 L 04/30/22 18:09 98 F 92 16 114/74 93 L 04/30/22 15:11 77 16 119/73 95 04/30/22 12:59 98.1 F 90 20 130/81 95 Intake and Output 04/30/22 05/01/22 05/01/22 22:59 06:59 14:59 Intake Total 600 Balance 600 Intake: Oral 600 Other: Voiding Method Toilet # Voids 2 Weight 73.482 kg - Constitutional General appearance: average body habitus, cooperative, no acute distress - EENT Eyes: anicteric sclerae, EOMI ENT: hearing grossly normal, normal oropharynx - Neck Neck: no lymphadenopathy - Respiratory Respiratory: left: CTA, bilateral: diminished (lower two thirds) - Cardiovascular Rhythm: regular Heart sounds: normal: S1, S2 Abnormal Heart Sounds: no systolic murmur, no diastolic murmur, no rub, no S3 Gallop, no S4 Gallop, no click, no other - Gastrointestinal General gastrointestinal: no absent bowel sounds, no decreased bowel sounds, distended, no hepatomegaly, no hyperactive bowel sounds, normal bowel sounds, no organomegaly, no rigid, no scaphoid, soft, no splenomegaly, no tenderness, no umbilical hernia, no ventral hernia - Integumentary Integumentary: normal - Neurologic Neurologic: CNII-XII intact - Musculoskeletal Musculoskeletal: strength equal bilaterally - Psychiatric Psychiatric: A&O x's 3, appropriate affect, intact judgment & insight Results CBC & Chem 7: 04/30/22 13:55 04/30/22 13:55 Labs: Abnormal Lab Results - Last 24 Hours (Table) 04/30/22 04/30/22 04/30/22 Range/Units 13:55 13:55 13:55 Lymphocytes # 0.9 L (1.0-4.8) k/uL APTT >200.0 H* (22.0-30.0) sec Sodium 133 L (137-145) mmol/L Chloride 95 L (98-107) mmol/L Creatinine 0.43 L (0.52-1.04) mg/dL 04/30/22 Range/Units Unknown Lymphocytes # (1.0-4.8) k/uL APTT 45.0 H (22.0-30.0) sec Sodium (137-145) mmol/L Chloride (98-107) mmol/L Creatinine (0.52-1.04) mg/dL CT scan - abdomen: report reviewed CT scan - pelvis: report reviewed Assessment and Plan (1) Ovarian cancer Current Visit: Yes Status: Acute Priority: High Code(s): C56.9 - MALIGNANT NEOPLASM OF UNSPECIFIED OVARY SNOMED Code(s): 954650735 Plan: Rising CA 125 most suggestive of recurrence. Patient is due to start a new regimen. Dr. Carballo discussed with patient concerns about the fluid surrounding the lungs. Concern is that if fluid is positive for malignancy she would no longer be a candidate for surgery. Plan at this time is for paracentesis and thoracentesis. Requesting cytology on ascitic fluid and pleural fluid. Patient may need chest tube if fluid reaccumulates quickly in the lung. Will see how patient does. attests: I have seen and examined patient, preformed H&P, developed impression and plan of care. Discussed with dictator. Agree with documentation, dictated as a scribe Time with Patient: Greater than 30
[2022-05-01] MEDS: ALPRAZolam 0.5 MG TAB PO SCH (20:39)
[2022-05-01 23:33] LABS: Appearance,BF Cloudy
[2022-05-02 00:21] LABS: Amylase, Fluid Source Ascites; Amylase,Body Fluid 31 U/L; Glucose, BF Source Ascites; Glucose, Body Fluid 84 mg/dL; LDH, Body Fluid Source Ascites; T. Protein, Body Fluid Source Ascites; Total Protein, Body Fluid 4860 mg/dL
[2022-05-02] MEDS: HYDROcodone/APAP 5-325MG 1 EACH TAB PO PRN ×3 (05:28→21:31)
[2022-05-02 07:38] LABS: Basophils % (A) 1 %; Eosinophils # (A) 0.1 k/uL (0-0.7); Eosinophils % (A) 3 %; HCT 39.5 % (34.0-46.0); HGB 12.8 gm/dL (11.4-16.0); Lymphocytes # (A) 0.8 k/uL (1.0-4.8); Lymphocytes % (A) 15 %; MCH 27.3 pg (25.0-35.0); MCHC 32.5 g/dL (31.0-37.0); Mean Platelet Volume 7.2; Monocytes # (A) 0.5 k/uL (0-1.0); Monocytes % (A) 9 %; Neutrophils # (A) 3.8 k/uL (1.3-7.7); Neutrophils % (A) 71 %; Platelet Count 351 k/uL (150-450); RDW 14.9 % (11.5-15.5); WBC 5.3 k/uL (3.8-10.6)
[2022-05-02 07:55] LABS: African American GFR (CKD) >90 (>60 ml/min/1.73 sqM); Anion Gap 10 mmol/L; Blood Urea Nitrogen 7 mg/dL (7-17); Calcium 8.7 mg/dL (8.4-10.2); Carbon Dioxide 25 mmol/L (22-30); Chloride 98 mmol/L (98-107); Glucose 94 mg/dL (74-99); Non-African American GFR(CKD) >90 (>60 ml/min/1.73 sqM); Potassium 4.3 mmol/L (3.5-5.1); Sodium 133 mmol/L (137-145)
[2022-05-02] MEDS: HEPARIN SODIUM,PORCINE/PF 5,000 UNIT/0.5 ML SYRINGE SQ SCH ×2 (08:58→21:31)
[2022-05-02] MEDS: PANTOPRAZOLE 40 MG/10 ML VIAL IV SCH (09:52)
[2022-05-02] MEDS: CYANOCOBALAMIN 500 MCG TAB PO SCH (09:54)
[2022-05-02] MEDS: ONDANSETRON 4 MG/2 ML VIAL IVP PRN (09:57)
[2022-05-02] MEDS: FLUoxetine HCL 20 MG CAP PO SCH (09:58)
[2022-05-02] MEDS: hydrOXYzine HCL 25 MG TAB PO SCH ×2 (09:58→21:30)
[2022-05-02] MEDS: METOPROLOL TARTRATE 12.5 MG TAB PO SCH ×2 (09:59→21:30)
--- NOTE | 2022-05-02 12:36 | US ---
Ultrasound-guided therapeutic and diagnostic thoracentesis DATE OF EXAM: 05/02/2022 CLINICAL HISTORY: Right pleural effusion The procedure was discussed with the patient. The risks, complications, benefits, and alternatives we re discussed and any questions were answered. Informed consent was obtained. The patient was placed supine on the ultrasound table and prepped and draped in the usual sterile fas hion. All elements of maximal barrier and sterile technique were utilized. Under ultrasound guidance, access into the pleural space was obtained, via the thoracentesis catheter system and direct ultrasound guidance. Ap proximately 1.6 liters of serous fluid was removed. Sample sent to pathology for analysis. The patient was stable throughout the procedure and remained stable upon discharge from Department of Radiology. IMPRESSION: 1. Successful therapeutic and diagnostic thoracentesis under ultrasound guidance.
--- NOTE | 2022-05-02 12:41 | XR ---
EXAMINATION TYPE: XR chest 1V portable DATE OF EXAM: 05/02/2022 COMPARISON: 10/29/2020 HISTORY: Post right thoracentesis TECHNIQUE: Single frontal view of the chest is obtained. FINDINGS: No sizable pneumothorax postthoracentesis. Bilateral consolidation and small effusion. Fin dings are markedly improved improved on the right relative to the recent CT scan. Heart size is tomasz l. Osseous structures are stable. IMPRESSION: Significant improvement post thoracentesis on the right with no sizable pneumothorax.
--- NOTE | 2022-05-02 19:22 | P.PN ---
Subjective Progress Note Date: 05/02/22 This is a pleasant 42 years old female with past medical history of ovarian cancer that she follows up with Dr. Stephen her oncologist. Presents with dyspnea for about one week with a dry cough but no chest pain Postop is bloated with feeling of reflux and indigestion that smoked resolved with medication She has no vomiting or diarrhea No urinary complaint like dysuria or urgency Her oncologist referred her for CT of the abdomen yesterday and after she follow up with her PCP Dr. Alexis referred her to the hospital for pleural effusion of ascites, new onset. Patient of note she supposed to follow-up with oncologist tomorrow to start chemotherapy. She denies smoking, she drinks about 3 times per week, and she uses marijuana. Vitals are stable. CBC is unremarkable. BMP showed sodium 133, rest of BMP creatinine, liver enzymes are unremarkable. CT of the abdomen and pelvis with and without contrast done yesterday showing: Moderate to large sized right pleural effusion and associated right lung compressive atelectasis. There is a new small to moderate sized left pleural effusion and associated left lung compressive atelectasis. Additional areas of bilateral ground glass opacity are present. Moderate amount of abdominal and pelvic ascites. Metastatic intra-peritoneal recurrence need to be considered. 05/01/2022 Patient is seen and evaluated in follow-up this morning continues to be short of breath with volume overload. Interventional radiology consulted and plans for paracentesis today and currently nothing by mouth. Patient with pleural effusions bilaterally initially consulted pulmonary although they recommend consulted and interventional radiology for thoracentesis. Interventional radiology unable to perform thoracentesis on the same day is a paracentesis and has scheduled for chest ultrasound for possible thoracentesis in 24 hours. Patient is afebrile denies chest pain or palpitations. Patient does report she is short of breath with exertion and currently maintained on 2-3 L. Patient reports she does not wear any oxygen in the outpatient setting. Patient also with some abdominal distention and bloating. 05/02/2022 Patient is seen in follow-up this morning currently nothing by mouth and awaiting thoracentesis of the right for pleural effusions with interventional radiology today. Patient is maintained on 2-3 L via nasal cannula and will evaluate for possible home O2 assessment after thoracentesis. Patient had approx 1.1 liters of ascites removed yesterday. Fluid analysis and cytology sent. Oncology following as well. Encouraged increased activity as tolerated and will continue with pain management. Patient is afebrile and denies chest pain or s hortness of breath. Patient reports improvement in abdominal pain and distention. Patient is requesting to go home post thoracentesis. Will await post xray and monitor and follow up post treatment. Review of systems: Constitutional: No reports of fatigue, fever, or chills Cardiovascular: No reports of chest pain or palpitations Respiratory: reports of shortness of breath GI: No reports of nausea, vomiting, or diarrhea : No reports of dysuria or retention Neurovascular: No reports of weakness or numbness All medications have been reviewed Physical exam: GENERAL: The patient is alert and oriented x3, not in any acute distress. Well developed, well nourished. HEENT: Pupils are round and equally reacting to light. EOMI. No scleral icterus. No conjunctival pallor. Normocephalic, atraumatic. No pharyngeal erythema. No thyromegaly. CARDIOVASCULAR: S1 and S2 present. No murmurs, rubs, or gallops. PULMONARY: Chest is clear to auscultation, no wheezing or crackles. Decreased breaths sounds on the right side ABDOMEN: Soft, nontender, less distended, normoactive bowel sounds. No palpable organomegaly. MUSCULOSKELETAL: No joint swelling or deformity. EXTREMITIES: No cyanosis, clubbing, or pedal edema. NEUROLOGICAL: Gross neurological examination did not reveal any focal deficits. SKIN: No rashes. no petechiae. Assessment: Bilateral pleural effusion, rule out malignant effusion, right more than left, post right side thoracentesis 05/02 Abdominal and pelvic ascites, rule out intraperitoneal metastasis. post paracentesis 05/01 Ovarian cancer, with a plan start chemotherapy soon, currently on hold Substance abuse with marijuana DVT prophylaxis: Subcutaneous heparin GI Prophylaxis: Ppi Full code Plan: Continue with pain management Oncology team following Interventional radiologist following and post paracentesis on 05/01 with approx 1.1 liters removed and sent for analysis. Today patient is post right side thoracentesis with approx 1.8 liters removed. Home 02 assessment was done and does not qualify for home 02. Currently room air. Patient with a slight cough bu t reports improved breathing. Fluid sent as well. Encouraged increased activity and oral hydration. Will follow up with repeat labs in am. Chest xray to assess for pneumothorax is pending. Possible discharge in 24 hours. Prognosis is guarded The impression and plan of care has been dictated by Veronika Bucio, Nurse Practitioner as directed. Dr. Garfield MD I have performed a history and examination and MDM of this patient, discussed the same with the dictator, and agree with the dictator's assessment and plan as written ,documented as a scribe. Based on total visit time, I have performed more than 50% of the visit. Objective - Vital Signs Vital signs: Vital Signs Temp 97.9 F 05/02/22 08:15 Pulse 78 05/02/22 12:40 Resp 18 05/02/22 12:40 BP 118/68 05/02/22 12:40 Pulse Ox 97 05/02/22 12:40 FiO2 Intake & Output 05/01/22 05/02/22 05/02/22 18:59 06:59 18:59 Intake Total 500 Output Total 1160 Balance -1160 500 Weight 74 kg Intake: Oral 500 Output: Other 1160 Other: Voiding Method Toilet Toilet # Voids 2 - Labs CBC & Chem 7: 05/02/22 07:05 05/02/22 07:05 Labs: Abnormal Lab Results - Last 24 Hours (Table) 05/02/22 05/02/22 Range/Units 07:05 07:05 Lymphocytes # 0.8 L (1.0-4.8) k/uL Sodium 133 L (137-145) mmol/L Creatinine 0.46 L (0.52-1.04) mg/dL Microbiology - Last 24 Hours (Table) 05/01/22 12:22 Gram Stain - Preliminary Ascites Fluid Body Fluid Culture - Preliminary 05/01/22 12:22 Anaerobic Culture - Preliminary Ascites Fluid
[2022-05-02] MEDS: ALPRAZolam 0.5 MG TAB PO SCH (21:30)
[2022-05-02 23:10] VITALS: RESP 16
[2022-05-03] MEDS: hydrOXYzine HCL 25 MG TAB PO SCH (10:08)
[2022-05-03] MEDS: CYANOCOBALAMIN 500 MCG TAB PO SCH (10:08)
[2022-05-03] MEDS: HEPARIN SODIUM,PORCINE/PF 5,000 UNIT/0.5 ML SYRINGE SQ SCH (10:08)
[2022-05-03] MEDS: FLUoxetine HCL 20 MG CAP PO SCH (10:08)
[2022-05-03] MEDS: METOPROLOL TARTRATE 12.5 MG TAB PO SCH (10:08)
[2022-05-03] MEDS: PANTOPRAZOLE 40 MG/10 ML VIAL IV SCH (10:08)
[2022-05-03 11:39] LABS: Amylase, Fluid Source Pleural Fluid; Amylase,Body Fluid 45 U/L; Appearance,BF Blood Tinged; Glucose, BF Source Pleural Fluid; Glucose, Body Fluid 80 mg/dL; LDH, Body Fluid Source Pleural Fluid
[2022-05-03 12:41] VITALS: BP 111/71; PULSE 74; TEMP 97.6
[2022-05-03 13:42] LABS: African American GFR (CKD) >90 (>60 ml/min/1.73 sqM); Anion Gap 8 mmol/L; Blood Urea Nitrogen 9 mg/dL (7-17); Calcium 8.6 mg/dL (8.4-10.2); Carbon Dioxide 25 mmol/L (22-30); Chloride 94 mmol/L (98-107); Glucose 102 mg/dL (74-99); Magnesium 1.6 mg/dL (1.6-2.3); Non-African American GFR(CKD) >90 (>60 ml/min/1.73 sqM); Potassium 4.3 mmol/L (3.5-5.1); Sodium 127 mmol/L (137-145)
--- NOTE | 2022-05-08 17:11 | CDI ---
Documentation Clarification Form Date: 05/08/2022 05:00:51 PM From: Jasmin Almaguer Admit Date: 04/30/2022 03:06:00 PM Patient Name: Josephine Laguna Visit Number: [id number] Discharge Date: 05/03/2022 02:05:00 PM ATTENTION: The Clinical Documentation Specialists (CDI) and [facility] Coding Staff appreciate your assistance in clarifying documentation. Please respond to the clarification below the line at the bottom and electronically sign. The CDI & [facility] Coding staff will review the response and follow-up if needed. Please note: Queries are made part of the Legal Health Record. If you have any questions, please contact the author of this message via ITS. Dr. Jake Chin Sheet The final diagnosis of the cytology report states Pleural fluid from thoracentesis- positive for metastatic adenocarcinoma with ovarian origin. Coding guidelines do not allow coding professionals to code based on pathology/cytology results. Therefore, clarification is requested. History/risk factors: History of ovarian carcinoma. Status post bilateral oophorectomy. Clinical Indicators: SOB, Pleural effusion, ascites DX workup: Thoracentesis. Cytology Results: Pleural fluid from thoracentesis- positive for metastatic adenocarcinoma with ovarian origin. Please clarify if you agree with the cytology report diagnosis of pleural fluid -Metastatic adenocarcinoma with ovarian origin. [ ] Yes [ ] No [ ] Other (please specify) [ ] Unable to determine yes, please refer to the discharging physician and note MTDD
== END 2022-05-03 14:05 | disposition home or self-care (01) | DRG 181 ==
LOC: EC 12:22 → 5NMEDONC 15:06
PROVIDERS: ADMIT Internal Medicine; ATTEND Internal Medicine
PROC: 0W9G3ZX Drainage of Peritoneal Cavity, Percutaneous Approach, Diagnostic (ICD-10-PCS; principal; 2022-05-02)
PROC: 0W993ZX Drainage of Right Pleural Cavity, Percutaneous Approach, Diagnostic (ICD-10-PCS; 2022-05-02)
DX: C78.2 Secondary malignant neoplasm of pleura (principal); J98.11 Atelectasis; R18.0 Malignant ascites; Z85.43 Personal history of malignant neoplasm of ovary; J91.0 Malignant pleural effusion; F12.10 Cannabis abuse, uncomplicated; K21.9 Gastro-esophageal reflux disease without esophagitis; F32.A Depression, unspecified; F41.9 Anxiety disorder, unspecified; R79.1 Abnormal coagulation profile; Z79.899 Other long term (current) drug therapy; Z88.5 Allergy status to narcotic agent
CPT/HCPCS: 32555; 36415; 49083; 71045; 76604; 80048; 80053; 82150; 82945; 83615; 83735; 84157; 85025; 85610; 85730; 87070; 87075; 87205; 88108; 88305; 88341; 88342; 89050; 96374; 96375; 99285

== ENCOUNTER 2022-06-04 11:57 | Day surgery (SDC) | payer BC ==
[2022-06-04 12:05] VITALS: RESP 15; TEMP 98
[2022-06-04 12:32] VITALS: BP 105/61; PULSE 48
[2022-06-04] MEDS ORDERED: LIDOCAINE 1% INJ 10MG/ML (30 ML VIAL-PF) SQ ONE (12:49)
[2022-06-04] MEDS ORDERED: LIDOCAINE 1% PF 10 MG/ML (5 ML AMP) SQ ONE (13:00)
--- NOTE | 2022-06-04 13:21 | XR ---
EXAMINATION TYPE: XR chest 1V portable DATE OF EXAM: 06/04/2022 1:00 PM COMPARISON: Chest radiographs from 06/03/2022 TECHNIQUE: XR chest 1V portable Frontal view of the chest. CLINICAL INDICATION:Female, 46 years old with history of post thoracentesis; FINDINGS: Lungs/Pleura: No evidence of focal consolidation or pneumothorax. Blunting of the costophrenic angles is present. Pulmonary vascularity: Unremarkable. Heart/mediastinum: Cardiomediastinal silhouette is unremarkable. Musculoskeletal: No acute osseous pathology. Lines/Tubes: Eklkhu-[id number]-Wvew projecting over the right hemithorax with distal tip at the cavoatrial junction. IMPRESSION: Persistent bilateral pleural effusions, no evidence of pneumothorax.
== END 2022-06-05 11:39 | disposition home or self-care (01) ==
LOC: PROCWHC3 11:57
PROVIDERS: ATTEND Internal Medicine
DX: J90 Pleural effusion, not elsewhere classified (principal)
CPT/HCPCS: 32554; 71045

== ENCOUNTER → 2022-06-04 | Outpatient (CLI) | payer BC ==
--- NOTE | 2022-06-04 10:59 | US ---
EXAMINATION TYPE: US chest DATE OF EXAM: 06/04/2022 COMPARISON: Radiograph 05/20/2022. CLINICAL HISTORY: J90 PLEURAL EFFUSION, NOT ELSEWHERE CLASSIFIED. Pleural effusion. TECHNIQUE: Targeted ultrasound of the posterior lower right chest EXAM MEASUREMENTS: Right Pleural Effusion pocket size: 14.7 cm Right skin surface to fluid distance: 2.1 cm Right side marked for possible thoracentesis outside the dept. Pulmonologists are able to review the images in the patient?s EMR. IMPRESSIONS: Right moderate to large pleural effusion.
--- NOTE | 2022-06-04 19:03 | OP ---
OPERATIVE REPORT PROCEDURE PERFORMED: Right-sided thoracentesis. 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 ANESTHESIA USED: 4 mL of 2% lidocaine. DESCRIPTION OF PROCEDURE: The patient was placed in a sitting upright position, and the area below the right scapula was prepared in a sterile fashion, and drapes were applied. The area was earlier localized by ultrasound, and it correlated to the area of the eighth intercostal space and tip of the scapula. The area was locally anesthetized with lidocaine. Then, the 26-gauge needle was inserted at the same site into the pleural space. Fluid was localized with a needle. Then, a small tiny incision was made, and a 9-British thoracentesis catheter and needle were used, advanced into the pleural space, and as soon as the fluid was obtained, the catheter was advanced over the needle into the pleural space, and the needle was pulled out of the pleural space. Freely-flowing fluid was removed from the right pleural space, 1250 mL of slightly serosanguineous fluid was removed from the right pleural space. Procedure was well tolerated; however, at the end of the procedure, the patient had symptoms of a vasovagal episode with lightheadedness and bradycardia, this resolved shortly after removing the needle from the pleural space, and the patient was allowed to rest flat on the stretcher. Again, no immediate complications. Chest x-ray is pending at the time of this dictation, and the vasovagal episode was expected. MMODL / IJN: [id number] /
== END | disposition home or self-care (01) ==
LOC: RADUSWWP 10:24
PROVIDERS: ATTEND Internal Medicine
DX: J90 Pleural effusion, not elsewhere classified (principal)
CPT/HCPCS: 76604

== ENCOUNTER → 2022-07-11 | Outpatient (CLI) | payer BC ==
[2022-07-11 10:54] LABS: African American GFR (CKD) >90 (>60 ml/min/1.73 sqM); Blood Urea Nitrogen 10 mg/dL (7-17); Non-African American GFR(CKD) >90 (>60 ml/min/1.73 sqM)
--- NOTE | 2022-07-11 13:32 | CT ---
EXAMINATION: CT CHEST, ABDOMEN AND PELVIS WITH IV CONTRAST DATE OF EXAMINATION: 2022. COMPARISON: 04/29/2022. INDICATION: Ovarian cancer with metastasis. PROCEDURE: Axial CT of the chest, abdomen and pelvis was performed following the intravenous adminis tration of 100 ml Isovue 300. Coronal and sagittal reformats were performed. CT dose lowering techni ques were used, to include: automated exposure control, adjustment for patient size, and/or use of it erative reconstruction. FINDINGS: CHEST: Left chest wall: There is a right-sided Mediport which is unchanged. Mediastinum and Luz Maria: There is no axillary, mediastinal or hilar lymphadenopathy. Pleural and Pericardial spaces: There is a large right pleural effusion and moderate to large left pl eural effusion. These are very similar to the previous examination. Cardiovascular: The thoracic aorta is normal in size without evidence of aneurysm or dissection. Pulmonary Artery: There are no central pulmonary arterial filling defects. Lung Parenchyma and Airways: Some mild patchy parenchymal changes throughout the lungs bilaterally wh ich are likely atelectasis. There is significant compressive atelectasis of the entire right lower lo be and mild compressive atelectasis of the left lower lobe. No suspicious pulmonary nodules are seen at this time. ABDOMEN: Liver and Biliary system: There is a lobulated contour to the liver with no suspicious liver lesions are otherwise identified at this time. Adrenal glands: Normal. Kidneys and ureters: Normal. Spleen: Normal. Pancreas: Normal. Gallbladder: Normal. Lymph nodes, Peritoneum and mesentery: There is no mesenteric or retroperitoneal lymphadenopathy. Th ere is a large amount of abdominal and pelvic ascites which is likely malignant ascites. Mild thicken ing of the omentum which is likely peritoneal carcinomatosis as well the ascites is likely very simil ar to the previous examination. Gastrointestinal tract: There are no dilated loops of bowel or free intraperitoneal air. . Appendix is not clearly seen. Aorta/IVC: Aorta normal. No aortic aneurysm or dissection. IVC normal. Abdominal wall: A small supraumbilical ventral hernia containing ascites. PELVIS: Fluid: There is no free fluid in the pelvis. Lymph Nodes: There is no pelvic or inguinal lymphadenopathy.. Urinary bladder: Normal. BONES: There are no osseous destructive lesions.. ADDITIONAL SIGNIFICANT FINDINGS: There is a soft tissue density with enhancement in the right adnex a measuring 4.0 x 2.6 cm in diameter that is likely related to the patient's ovarian malignancy or du e to peritoneal metastasis. The uterus does appear to be surgically absent.. IMPRESSION: 1. Large amount of abdominal and pelvic ascites is likely malignant ascites. There is some thickening of the omentum which also likely relates to peritoneal carcinomatosis. The overall amount of ascites is very similar to the previous examination. 2. Soft tissue mass within the right adnexa may relate to metastasis versus the patient's ovarian car cinoma. 3. Large right and moderate to large left pleural effusion. These likely represent malignant effusion s. These are also very similar to the previous examination.
== END | disposition home or self-care (01) ==
LOC: RADCTMAIN 09:35
PROVIDERS: ATTEND Internal Medicine Hematology & Oncology
DX: C56.9 Malignant neoplasm of unspecified ovary (principal); N83.8 Other noninflammatory disorders of ovary, fallopian tube and broad ligament; J90 Pleural effusion, not elsewhere classified; R18.8 Other ascites
CPT/HCPCS: 82565; 84520; 71260; 74177; 36415; Q9967 ×2

== ENCOUNTER 2022-07-21 12:22 | Day surgery (SDC) | payer BC ==
[2022-07-21] MEDS ORDERED: ALTEPLASE 2 MG VIAL (CATHFLO) IV STA (13:09)
[2022-07-21 13:12] LABS: Mean Platelet Volume 7.1; Platelet Count 316 k/uL (150-450)
[2022-07-21 13:23] LABS: Prothrombin Time 10.6 sec (9.0-12.0)
[2022-07-21 13:42] VITALS: PULSE 54; RESP 16; TEMP 98.4
--- NOTE | 2022-07-21 14:41 | US ---
EXAMINATION TYPE: US discontinued paracentesis DATE OF EXAM: 07/21/2022 CLINICAL HISTORY: Ascites Limited ultrasound of the abdomen demonstrates a very small pocket of ascites in the left lower quadr ant and also a small amount marginating the inferior right hepatic lobe. IMPRESSION: Limited ultrasound demonstrating only a very small amount of fluid in the abdomen, thus therapeutic p aracentesis was not performed. Of note, the patient does have large bilateral pleural effusions. She states she has no acute symptom s, but has a clinical follow up in several days.
== END 2022-07-21 14:30 | disposition home or self-care (01) ==
LOC: RADPROMAIN 12:22
PROVIDERS: ATTEND Internal Medicine Hematology & Oncology
DX: R18.8 Other ascites (principal); I10 Essential (primary) hypertension; F41.9 Anxiety disorder, unspecified; K21.9 Gastro-esophageal reflux disease without esophagitis; Z90.710 Acquired absence of both cervix and uterus; Z90.49 Acquired absence of other specified parts of digestive tract; Z87.891 Personal history of nicotine dependence; Z86.59 Personal history of other mental and behavioral disorders; Z71.3 Dietary counseling and surveillance
CPT/HCPCS: 85049; 85610; 76705; 49083; J2997

== ENCOUNTER → 2022-07-29 | Outpatient (CLI) | payer BC ==
--- NOTE | 2022-07-29 11:42 | US ---
EXAMINATION TYPE: US chest DATE OF EXAM: 07/29/2022 COMPARISON: US, CT, XR CLINICAL HISTORY: J90 PLEURAL EFFUSION, NOT ELSEWHERE CLASSIFIED. Bilateral markings. TECHNIQUE: Targeted ultrasound of the posterior lower bilateral hemithoraces EXAM MEASUREMENTS: Right Pleural Effusion pocket size: Debris seen within fluid. 11.46 cm Right skin surface to fluid distance: 2.76 cm Left Pleural Effusion pocket size: Debris seen within fluid. 6.59 cm Left skin surface to fluid distance: 2.94 cm Right side marked for possible thoracentesis outside the dept. Debris seen within. Left side marked for possible thoracentesis outside the dept. Debris seen within. Pulmonologists are able to review the images in the patient?s EMR. IMPRESSIONS: 1. Bilateral pleural effusion as measured above
== END | disposition home or self-care (01) ==
LOC: RADUSWWP 10:58
PROVIDERS: ATTEND Internal Medicine
DX: J90 Pleural effusion, not elsewhere classified (principal)
CPT/HCPCS: 76604

== ENCOUNTER 2022-09-24 12:13 | Day surgery (SDC) | payer BC ==
[~2022-09-24 12:13] MED LIST changes: -ACETAMINOPHEN TAB 500 MG TAB PO PRN; -DEXAMETHASONE SOD PHOSPHATE 4 MG/ML 1 ML VIAL IV ONE; -HEPARIN SODIUM,PORCINE/PF 5,000 UNIT/0.5 ML SYRINGE SQ PRN; -LACTATED RINGERS 1,000 ML IV SCH; -LIDOCAINE 1% (10MG/ML) FOR IV START INTRADERMA PRN; -ONDANSETRON 4 MG/2 ML VIAL IVP ONE; -Pre Op ABX Message 1 EACH MISC MISCELLANE ONE; +SODIUM CHLORIDE 0.9% 500 ML 500 ML in EMPTY BAG 1 BAG IV PRN
[2022-09-24 12:18] VITALS: RESP 16; TEMP 97.6
[2022-09-24 12:30] VITALS: BP 128/70; PULSE 72
--- NOTE | 2022-09-24 13:09 | OP ---
OPERATIVE REPORT DATE OF SERVICE : PROCEDURE PERFORMED: Right-sided thoracentesis. PREOPERATIVE DIAGNOSIS: Malignant right-sided pleural effusion. POSTOPERATIVE DIAGNOSIS: Malignant right-sided pleural effusion. ANESTHESIA USED: 5 mL of 1% lidocaine. DESCRIPTION OF PROCEDURE: The patient was placed in a sitting upright position, the area of the fluid was earlier localized by ultrasound guidance and marking was placed at the level of the 8th intercostal space and tip of the scapula. The area was prepared in a sterile fashion. Drapes were applied, and at the level of the 8th intercostal space and tip of the scapula where the marking is, the area was locally anesthetized with lidocaine. Then, a needle was inserted. A 26-gauge needle inserted at the same site, advanced into the pleural space and the fluid was localized. Then a small tiny incision was made, a standard thoracentesis catheter and needle were used, inserted at the same site, advanced into the pleural space, and as soon as the fluid was obtained, the catheter was advanced over the needle, and the needle was pulled out of the pleural space. Freely flowing fluid was removed, roughly 1750 mL of fluid was drained from the pleural space. Procedure was well tolerated, no complications, chest x-ray is pending at the time of dictation and it is pending. The fluid was discarded since we already had established diagnosis of malignant pleural effusion in the past. Again, there was a total of 1750 mL of roseann colored fluid from the right pleural space. MMODL / IJN: [id number] /
--- NOTE | 2022-09-24 13:29 | XR ---
EXAMINATION TYPE: XR chest 1V portable DATE OF EXAM: 09/24/2022 COMPARISON: 09/22/2022 HISTORY: RT sided thoracentesis TECHNIQUE: Single frontal view of the chest is obtained. FINDINGS: Bilateral consolidation and small effusion. There is a Mediport catheter the tip overlying the SVC. No pneumothorax. Heart size stable. IMPRESSION: Bilateral infiltrate and small effusion. No sizable pneumothorax.
== END 2022-09-25 14:10 | disposition home or self-care (01) ==
LOC: PROCWHC3 12:13
PROVIDERS: ATTEND Internal Medicine
DX: C56.9 Malignant neoplasm of unspecified ovary (principal); J91.0 Malignant pleural effusion; Z92.21 Personal history of antineoplastic chemotherapy; F41.9 Anxiety disorder, unspecified; F32.A Depression, unspecified; K21.9 Gastro-esophageal reflux disease without esophagitis; Z88.5 Allergy status to narcotic agent; Z88.8 Allergy status to other drugs, medicaments and biological substances; Z87.891 Personal history of nicotine dependence
CPT/HCPCS: 71045; 32554; J2001

== ENCOUNTER → 2022-09-24 | Outpatient (CLI) | payer BC ==
--- NOTE | 2022-09-24 11:40 | US ---
EXAMINATION TYPE: US chest DATE OF EXAM: 09/24/2022 COMPARISON: NONE CLINICAL HISTORY: J90 PLEURAL EFFUSION, NOT ELSEWHERE CLASSIFIED. Pleural effusion TECHNIQUE: Targeted ultrasound of the posterior lower bilateral hemithoraces EXAM MEASUREMENTS: Right Pleural Effusion pocket size: 14 cm Right skin surface to fluid distance: 2 cm Left Pleural Effusion pocket size: 13 cm Left skin surface to fluid distance: 2 cm Right side marked for possible thoracentesis outside the dept. Left side marked for possible thoracentesis outside the dept. Pulmonologists are able to review the images in the patient?s EMR. IMPRESSIONS: 1. Bilateral pleural effusions
== END | disposition home or self-care (01) ==
LOC: RADUSWWP 10:31
PROVIDERS: ATTEND Internal Medicine Critical Care Medicine
DX: J90 Pleural effusion, not elsewhere classified (principal)
CPT/HCPCS: 76604

== ENCOUNTER 2022-11-21 10:50 | Day surgery (SDC) | payer BC ==
[2022-11-21 11:18] VITALS: RESP 16; TEMP 97.8
[2022-11-21 12:13] VITALS: BP 129/63; PULSE 73
--- NOTE | 2022-11-21 12:19 | XR ---
EXAMINATION TYPE: XR chest 1V portable DATE OF EXAM: 11/21/2022 COMPARISON: Chest x-ray from yesterday HISTORY: Post left-sided thoracentesis TECHNIQUE: Single AP portable frontal upright view of the chest is obtained. FINDINGS: Stable right internal jugular Mediport catheter. Persistent small to moderate-sized bilate ral pleural effusions and associated bibasilar opacity favoring compressive atelectasis. Left sided e ffusion slightly improved after thoracentesis. No pneumothorax is evident. Silhouetting of both hemid iaphragms redemonstrated. Cardiac silhouette size is stable and likely upper limits of normal. Osseou s structures are intact. IMPRESSION: As above.
--- NOTE | 2022-11-21 13:27 | OP ---
OPERATIVE REPORT DATE OF SERVICE : PROCEDURE PERFORMED: Left-sided thoracentesis. PREOPERATIVE DIAGNOSIS: Recurrent left-sided malignant pleural effusion. POSTOPERATIVE DIAGNOSIS: Recurrent left-sided malignant pleural effusion. ANESTHESIA USED: 4 mL of 1% lidocaine. DESCRIPTION OF PROCEDURE: The patient was placed in a sitting upright position. The area of the fluid was earlier localized by ultrasound guidance, and the marking was placed at the level of the eighth intercostal space and tip of the scapula. The area was prepared in a sterile fashion. The area was anesthetized locally with lidocaine. Then, a 26-gauge needle was inserted at the same site and advanced into the pleural space. Fluid was localized. Then, a small tiny incision was made, and a standard thoracentesis catheter and needle were used, advanced at the same site into the pleural space, and fluid was obtained. Then, the catheter was advanced over the needle, and the needle was pulled out of the pleural space. Roughly 1750 mL of serosanguineous fluid was removed from the left pleural space. Procedure was well tolerated, and the fluid was not sent for any diagnostic studies since the diagnosis has been made from previous thoracentesis procedures. The patient tolerated the procedure quite well. No immediate complications. Chest x-ray done postoperatively showed no evidence of any pneumothorax and no complications. The patient will be discharged home, and she will follow up on outpatient basis. MMODL / IJN: [id number] /
== END 2022-11-21 14:38 | disposition home or self-care (01) ==
LOC: PROCWHC3 10:50
PROVIDERS: ATTEND Internal Medicine
DX: C56.9 Malignant neoplasm of unspecified ovary (principal); J91.0 Malignant pleural effusion; F41.9 Anxiety disorder, unspecified; F32.A Depression, unspecified; K21.9 Gastro-esophageal reflux disease without esophagitis; Z87.891 Personal history of nicotine dependence; Z88.5 Allergy status to narcotic agent; Z88.8 Allergy status to other drugs, medicaments and biological substances
CPT/HCPCS: 32554; 71045

== ENCOUNTER → 2022-11-21 | Outpatient (CLI) | payer BC ==
--- NOTE | 2022-11-21 11:08 | US ---
EXAMINATION TYPE: US chest DATE OF EXAM: 11/21/2022 COMPARISON: Prior ultrasound September 24, 2022 CLINICAL INDICATION: Female, 46 years old with history of J90 PLEURAL EFFUSION, NOT ELSEWHERE CLASSIF IED; bilat pleural effusion TECHNIQUE: Targeted ultrasound of the posterior lower bilateral hemithoraces EXAM MEASUREMENTS: Right Pleural Effusion pocket size: 11.3 cm Right skin surface to fluid distance: 3.0 cm Left Pleural Effusion pocket size: 11.4 cm Left skin surface to fluid distance: 3.0 cm Right side marked for possible thoracentesis outside the dept. Left side marked for possible thoracentesis outside the dept. Pulmonologists are able to review the images in the patient?s EMR. Large bilateral pleural effusions redemonstrated on images saved. IMPRESSIONS: As above.
== END | disposition home or self-care (01) ==
LOC: RADUSWWP 10:19
PROVIDERS: ATTEND Internal Medicine
DX: J90 Pleural effusion, not elsewhere classified (principal)
CPT/HCPCS: 76604

== ENCOUNTER → 2022-12-23 | Outpatient (CLI) | payer BC ==
[2022-12-23 11:33] LABS: African American GFR (CKD) >90 (>60 ml/min/1.73 sqM); Blood Urea Nitrogen 9 mg/dL (7-17); Non-African American GFR(CKD) >90 (>60 ml/min/1.73 sqM)
--- NOTE | 2022-12-23 13:46 | CT ---
EXAMINATION TYPE: CT ChestAbdPelvis w con DATE OF EXAM: 12/23/2022 COMPARISON: Most recent CT July 11, 2022 and older studies HISTORY: f/u ovarian ca with mets CT DLP: 780.9 mGycm. Automated Exposure Control for Dose Reduction was Utilized. CONTRAST: CT scan of the thorax, abdomen and pelvis is performed with oral and with IV Contrast, patient inject ed with 100 mL of Isovue 300. FINDINGS: LUNGS: Moderate to large size bilateral pleural effusions are now present with interval increase in s ize of left-sided effusion since prior study. Associated compressive atelectasis in the mid to lower lungs is redemonstrated. Multifocal areas of groundglass opacity in the bilateral upper lungs is slig htly more prominent from prior study. Differential includes edema versus infiltrate versus side effec t from attempted treatment change. Focal scarring with slight nodularity in the anterior right mid marycruz ng axial image 36 is redemonstrated. MEDIASTINUM: There are no new greater than 1 cm hilar or mediastinal lymph nodes. No cardiomegaly o r pericardial effusion is seen. OTHER: Stable right internal jugular Mediport catheter. LIVER/GB: Continuing improvement in adjacent ascites. PANCREAS: No significant abnormality is seen. SPLEEN: Stable small anterior lateral splenule axial image on 69 current study is redemonstrated. ADRENALS: No significant abnormality is seen. KIDNEYS: Symmetric cortical medullary uptake and excretion on postcontrast images. No hydronephrosis seen bilaterally. Bladder remains left of midline. BOWEL: Oral contrast reaches level of splenic flexure on current study. No suspicious small or large bowel dilatation. Some wall thickening in the distal transverse colon there are axial image 83 is not ed. GENITAL ORGANS: Uterus is surgically absent. Left-sided pelvic phleboliths redemonstrated. LYMPH NODES: No new greater than 1cm abdominal or pelvic lymph nodes are appreciated. OSSEOUS STRUCTURES: Moderate disc space narrowing with posterior spurring L5-S1 level is redemonstrat ed. OTHER: There is persistent nonsimple fluid or a thin-walled cystic lesion filling the pelvis with mas s effect on the bladder axial image 109 for reference, Hounsfield units average near 22. This measure s near 12.8 x 7.1 cm axial image 109. There is nondependent calcified material Axial image 109 corres ponding to site of prior lobulated solid tissue on most recent prior study. Small amount of fluid in the left lower quadrant posteriorly axial image 92 remains present less prominent versus prior studie s. Omental nodularity is less prominent versus prior. Overlying vertical oriented scar redemonstrated. Small 1.0 cm focal fluid presumed ventral wall herni a axial image 73 on current study. IMPRESSION: Improving intra-abdominal and pelvic ascites from most recent CT. Stable right thin-adan d cystic mass with dependent lobulated noncalcified solid component suspicious for known ovarian neop lasm with local mass effect has similar appearance to most recent CT. No obvious new mass or adenopat hy. There are bowel moderate to large size bilateral pleural effusions with left-sided pleural effusi on increased in size from most recent CT.
== END | disposition home or self-care (01) ==
LOC: RADPROMAIN 09:56
PROVIDERS: ATTEND Internal Medicine Hematology & Oncology
DX: C56.9 Malignant neoplasm of unspecified ovary (principal); D61.811 Other drug-induced pancytopenia; K21.9 Gastro-esophageal reflux disease without esophagitis; I10 Essential (primary) hypertension; R18.8 Other ascites; J90 Pleural effusion, not elsewhere classified
CPT/HCPCS: 82565; 84520; 71260; 74177; 36415; J1642; Q9967

== ENCOUNTER 2023-01-28 11:09 | Day surgery (SDC) | payer BC ==
[2023-01-28 11:48] VITALS: RESP 16; TEMP 98
[2023-01-28 12:35] VITALS: BP 129/82; PULSE 66
--- NOTE | 2023-01-28 12:56 | XR ---
EXAMINATION TYPE: XR chest 1V portable DATE OF EXAM: 01/28/2023 12:50 PM COMPARISON: Chest radiographs from 12/23/2022 TECHNIQUE: XR chest 1V portable Portable AP radiograph of the chest. CLINICAL INDICATION:Female, 47 years old with history of pleural effusion; FINDINGS: Lungs/Pleura: Similar small moderate size left pleural effusion with decrease small right pleural eff usion. No pneumothorax. Pulmonary vascularity: Unremarkable. Heart/mediastinum: Cardiomediastinal silhouette is partially obscured due to overlying and adjacent o pacities. Musculoskeletal: No acute osseous pathology. Other findings: None Lines/Tubes: Right chest wall [id number] with tip in stable position. IMPRESSION: Similar small moderate size left pleural effusion with decrease small right pleural effusion. No pneu mothorax.
--- NOTE | 2023-01-28 19:46 | OP ---
OPERATIVE REPORT DATE OF SERVICE : PROCEDURE PERFORMED: Left-sided thoracentesis. PREOPERATIVE DIAGNOSIS: Recurrent malignant left-sided pleural effusion. POSTOPERATIVE DIAGNOSIS: Recurrent malignant left-sided pleural effusion. ANESTHESIA USED: 2 mL of 1% lidocaine. DESCRIPTION OF PROCEDURE: The patient was placed in a sitting upright position, the fluid was earlier localized by ultrasound, and it showed a large pocket in the left pleural space. A marking was placed at the tip of the scapula and 8th intercostal space. The area at that site was locally anesthetized after the patient was placed in a sitting position and the area was prepared in a sterile fashion and drapes were applied. Then, a 26-gauge needle was inserted at that site into the pleural space, fluid was localized with a needle, the fluid was noted to be serosanguineous. Then, a small tiny incision was made at the same site, and a standard 9-Armenian thoracentesis catheter was used, advanced at the same site into the pleural space, and as soon as the fluid was obtained, the catheter was advanced over the needle and the needle was pulled out of the pleural space. Freely flowing fluid was removed from the left pleural space, I was able to drain a total of 1800 mL of serosanguineous fluid. Procedure was well tolerated, no complications, chest x-ray showed no evidence of pneumothorax. The fluid was discarded since it has been previously diagnosed to be malignant pleural effusion. MMODL / IJN: [id number] /
== END 2023-01-28 15:04 | disposition home or self-care (01) ==
LOC: PROCWHC3 11:09
PROVIDERS: ATTEND Internal Medicine
DX: J91.0 Malignant pleural effusion (principal)
CPT/HCPCS: 32554; 71045

== ENCOUNTER → 2023-01-28 | Outpatient (CLI) | payer BC ==
--- NOTE | 2023-01-28 11:23 | US ---
EXAMINATION TYPE: US chest DATE OF EXAM: 01/28/2023 COMPARISON: NONE CLINICAL INDICATION: Female, 47 years old with history of J90 PLEURAL EFFUSION; bilat pleural effusio n TECHNIQUE: Targeted ultrasound of the posterior lower bilateral hemithoraces EXAM MEASUREMENTS: Right Pleural Effusion pocket size: 10.6 cm Right skin surface to fluid distance: 2.3 cm Left Pleural Effusion pocket size: 2.5 cm Left skin surface to fluid distance: 11.7 cm Right side marked for possible thoracentesis outside the dept. Left side marked for possible thoracentesis outside the dept. Pulmonologists are able to review the images in the patient?s EMR. Slightly complex appearing fluid IMPRESSIONS: Slightly complex moderate bilateral pleural effusions.
== END | disposition home or self-care (01) ==
LOC: RADUSWWP 10:45
PROVIDERS: ATTEND Internal Medicine
DX: J90 Pleural effusion, not elsewhere classified (principal)
CPT/HCPCS: 76604

== ENCOUNTER → 2023-02-18 | Outpatient (CLI) | payer BC ==
--- NOTE | 2023-02-18 20:14 | XR ---
EXAMINATION TYPE: XR chest 2V DATE OF EXAM: 02/18/2023 COMPARISON: 01/28/2023 INDICATION: Pleural effusion TECHNIQUE: Single frontal view of the chest is obtained. FINDINGS: The heart size is normal. The pulmonary vasculature is normal. There is a small to moderate left pleural effusion. Small right pleural effusion is present. Some min imal fluid appears to be in the minor fissure. Catheter is present on the right with the tip in the region of the superior vena cava region IMPRESSION: 1. Bilateral pleural effusions
== END | disposition home or self-care (01) ==
LOC: RADXRMAIN 15:01
PROVIDERS: ATTEND Surgery
DX: J90 Pleural effusion, not elsewhere classified (principal)
CPT/HCPCS: 71046

== ENCOUNTER → 2023-02-18 | Outpatient (CLI) | payer BC ==
[2023-02-18 16:33] LABS: Partial Thromboplastin Time 24.4 sec (22.0-30.0); Prothrombin Time 10.4 sec (9.0-12.0)
[2023-02-18 19:49] LABS: Eosinophils % (A) 2.5 %; HGB 11.8 d/dL (12.0-15.0); Lymphocytes % (A) 37.2 %; MCH 28.4 pg (27.0-32.0); MCHC 31.9 d/dL (32.0-37.0); MCV 89.2 FL (80.0-97.0); Mean Platelet Volume 10.9 FL (9.5-12.2); Monocytes % (A) 6.4 %; NRBC Per 100 WBC 0 X 10*3/uL (0.00-0.01); Neutrophils % (A) 52.4 %; Platelet Count 328 X 10*3/uL (140-440); RBC 4.15 X 10*6/uL (4.10-5.20); RDW 14.5 % (11.5-14.5); WBC 2.82 X 10*3/uL (4.50-10.00)
[2023-02-18 19:50] LABS: Basophils # (A) 0.03 X 10*3/uL (0.00-0.10); Basophils % (A) 1.1 %; Eosinophils # (A) 0.07 X 10*3/uL (0.04-0.35); Lymphocytes # (A) 1.05 X 10*3/uL (0.90-5.00); Monocytes # (A) 0.18 X 10*3/uL (0.20-1.00); Neutrophils # (A) 1.48 X 10*3/uL (1.80-7.70)
[2023-02-18 20:05] LABS: Carbon Dioxide 23.4 mmol/L (21.6-31.8); Chloride 102 mmol/L (96-109); Glucose 100 mg/dL (70-110); Potassium 4.8 mmol/L (3.5-5.5); Sodium 137 mmol/L (135-145)
== END | disposition home or self-care (01) ==
LOC: LABPAT 15:22
PROVIDERS: ATTEND Surgery
DX: Z01.812 Encounter for preprocedural laboratory examination (principal); J90 Pleural effusion, not elsewhere classified
CPT/HCPCS: 36415; 80051; 82565; 82947; 84520; 85025; 85610; 85730

== ENCOUNTER 2023-02-20 10:14 | Day surgery (SDC) | payer BC ==
[2023-02-16 12:21] VITALS: BMI 25.7
[2023-02-20] MEDS ORDERED: LACTATED RINGERS 1,000 ML IV SCH (10:24)
[2023-02-20] MEDS ORDERED: SCOPOLAMINE 1 MG/72 HR PATCH TRANSDERM ONE (10:24)
[2023-02-20] MEDS ORDERED: MIDAZOLAM 2 MG/2 ML VIAL IV PRN (10:24)
[2023-02-20] MEDS ORDERED: fentaNYL (PF) 50 MCG/ML 2 ML AMP IV PRN (10:24)
[2023-02-20] MEDS ORDERED: ONDANSETRON 4 MG/2 ML VIAL IVP ONE (10:24)
[2023-02-20] MEDS ORDERED: DEXAMETHASONE SOD PHOSPHATE 4 MG/ML 1 ML VIAL IV ONE (10:24)
[2023-02-20 10:43] VITALS: RESP 16; TEMP 97.1
[2023-02-20] MEDS ORDERED: MIDAZOLAM 2 MG/2 ML VIAL IVP ONE (11:26)
[2023-02-20] MEDS ORDERED: HYDROcodone/APAP 5-325MG 1 EACH TAB PO ONE (13:55)
[2023-02-20] MEDS ORDERED: KETAMINE 10 MG/ML 20 ML VIAL ONE (14:11)
[2023-02-20] MEDS ORDERED: MIDAZOLAM 2 MG/2 ML VIAL ONE (14:11)
[2023-02-20] MEDS ORDERED: PROPOFOL 10 MG/ML 20 ML VIAL IV ONE (14:11)
[2023-02-20] MEDS ORDERED: fentaNYL (PF) 50 MCG/ML 2 ML AMP ONE (14:11)
[2023-02-20] MEDS ORDERED: LIDOCAINE 1% INJ 10MG/ML (20 ML MDV) SQ ONE ×2 (14:41)
[2023-02-20] MEDS ORDERED: LACTATED RINGERS 1,000 ML IV ONE (14:42)
--- NOTE | 2023-02-20 15:52 | P.OP ---
Date of Procedure: 02/20/23 Preoperative Diagnosis: Bilateral metastatic recurrent pleural effusion from ovarian cancer Postoperative Diagnosis: Same Procedure(s) Performed: Bilateral Pleurx catheter insertion Implants: Pleurx drainX2 Anesthesia: other (Local with IV sedation) Surgeon: Pernell Menchaca Pathology: none sent (Had previous diagnosis made on the fluid) Condition: stable Disposition: same day Indications for Procedure: Bilateral recurrent malignant pleural effusion related to metastatic ovarian cancer. Patient is currently on chemotherapy. Patient is brought in today for bilateral Pleurx catheter. The risks benefits and alternative were discussed with nausea understood it and agreed to proceed Operative Findings: 1 L of pleural effusion drained from each side and we intentionally stopped at that volume on either side Description of Procedure: Patient in supine position IV sedation was administered. The chest and abdomen were prepped and dropped using ChloraPrep. Patient received 2 g of cefazolin intravenously. Timeout was carried. Patient pleural effusion had been confirmed by bilateral ultrasound performed on the table and marking of the potential site for entering the chest on either side. We started with the left side using local anesthesia secured with lidocaine 1% and with a finding needle we proved access to the fluid. With that and using Seldinger technique we placed a guidewire in the left pleural cavity. Subsequently the exit point at the level of the left upper quadrant was marked and local anesthesia of that site as well as the tunnel connecting both incision was secured again with lidocaine 1%. Using a tunneler the catheter was tunneled from the left upper quadrant to the entry point at the level of the chest. Over the guidewire and after dilating with a superior way sheath through which we pushed the catheter inside the pleural cavity after removing the dilator and the wire. The peel- away sheath was removed. We connected the drain to a negative vacuum bottle and a total of 1 L was drained and was stopped electively at that level. The drain was affixed further to the skin using silk 20. The same exact procedure was carried on the right side and also 1 L of pleural effusion was evacuated and we terminated the drainage and potentially at 1 L. Patient had a previous diagnosis of metastatic ovarian carcinoma on both pleural effusion so the fluid was not sent for cytology. Patient artery procedure well and was transferred to the recovery room in stable condition
[2023-02-20] MEDS ORDERED: HYDROcodone/APAP 5-325MG 1 EACH TAB ONE (15:58)
[2023-02-20 16:00] VITALS: BP 132/71; PULSE 62
--- NOTE | 2023-02-20 16:09 | XR ---
EXAMINATION TYPE: XR chest 1V portable DATE OF EXAM: 02/20/2023 4:03 PM COMPARISON: Chest radiographs from 02/18/2023 TECHNIQUE: XR chest 1V portable Frontal view of the chest. CLINICAL INDICATION:Female, 47 years old with history of post Pleurx; FINDINGS: Lungs/Pleura: Trace bilateral pleural effusions. Small right and trace left pneumothoraces. Pulmonary vascularity: Unremarkable. Heart/mediastinum: Cardiomediastinal silhouette is unremarkable. Curvilinear suspected visceral pleur al line projects along the left heart border. Musculoskeletal: No acute osseous pathology. Other findings: None Lines/Tubes: Right internal jugular central venous catheter with distal tip at the cavoatrial junction. Right thoracotomy tube is present with evidence of small pneumothorax. Left thoracotomy tube is present with suspected trace pneumothorax along the mediastinum.. IMPRESSION: 1. Right Pleurx catheter with small pneumothorax. 2. Trace right pleural effusion. 3. Left Pleurx catheter with suspected trace pneumothorax along the mediastinum.
== END 2023-02-20 16:37 | disposition home health service (06) ==
LOC: OR 10:14
PROVIDERS: ATTEND Surgery
DX: C79.60 Secondary malignant neoplasm of unspecified ovary (principal); J91.0 Malignant pleural effusion; I10 Essential (primary) hypertension; F12.90 Cannabis use, unspecified, uncomplicated; K21.9 Gastro-esophageal reflux disease without esophagitis; Z79.891 Long term (current) use of opiate analgesic; Z79.899 Other long term (current) drug therapy
CPT/HCPCS: 32550; 71045; 75989; J2250; J1100; J0690; J2405; J2001; J3010; J1642; J2704

== ENCOUNTER → 2023-05-14 | Outpatient (CLI) | payer BC ==
[2023-05-14 13:50] LABS: African American GFR (CKD) >90 (>60 ml/min/1.73 sqM); Blood Urea Nitrogen 13 mg/dL (7-17); Non-African American GFR(CKD) >90 (>60 ml/min/1.73 sqM)
--- NOTE | 2023-05-15 08:39 | CT ---
EXAMINATION TYPE: CT ChestAbdPelvis w con DATE OF EXAM: 05/14/2023 COMPARISON: 12/23/2022 HISTORY: Ovarian cancer x 5 years. Fluid retention in lungs. CT DLP: 1224.9 mGycm CONTRAST: CT scan of the chest, abdomen and pelvis is performed with Oral Contrast and with IV Contrast, patien t injected with 100 cc mL of Isovue 300. CT Chest: LUNGS: There is a placement of bibasilar pleural catheters. The small residual pleural effusions pers ist. Basilar compressive atelectasis. 3 mm right lower lobe pulmonary nodule. No additional nodules o r masses seen. \No pleural effusion or CT evidence of interstitial lung disease. MEDIASTINUM: Thoracic aorta is of normal caliber. The heart is not enlarged. No evidence for media stinal mass or adenopathy. HILAR STRUCTURES: No evidence for mass. No hilar adenopathy is appreciated. OTHER: No significant abnormality. CONTRAST CT ABDOMEN AND PELVIS FINDINGS: LIVER/GB: No calcified gallstones. No space occupying hepatic lesion. Biliary tree is of normal ca liber. PANCREAS: No inflammation. No distinct mass. SPLEEN: No splenic enlargement. No lesion seen. Small splenule noted adjacent to the spleen. ADRENALS: No nodule. No thickening. KIDNEYS/BLADDER: No hydronephrosis. No nephrolithiasis. No disctinct renal mass. BOWEL: Normal appendix. Normal bowel caliber. No inflammation. GENITAL ORGANS: Thin-walled cystic mass within the right hemipelvis appears significantly smaller in size and again demonstrates dependent calcific density and currently measures 10.4 cm x 3.8 cm versus 12.8 cm x 7.1 cm. No left-sided adnexal masses. Hysterectomy changes noted. Omental nodularity less conspicuous on today's study. LYMPH NODES: No greater than 1cm abdominal or pelvic lymph nodes are appreciated. AORTA: No significant abnormality. OSSEOUS STRUCTURES: No significant abnormality is seen. OTHER: No significant additional abnormality is seen. IMPRESSION: 1. Significant diminution in bilateral pleural effusions with small residual effusions remaining as w ell as compressive atelectasis. 3 mm right lower lobe pulmonary nodule. 2. cystic mass adjacent to the right portion of the urinary bladder persists although is much smaller in size 3. No obvious new mass or adenopathy appreciated. Omental nodularity is less conspicuous on today's s tudy.
== END | disposition home or self-care (01) ==
LOC: RADCTMAIN 13:17
PROVIDERS: ATTEND Internal Medicine Hematology & Oncology
DX: C56.9 Malignant neoplasm of unspecified ovary (principal); D61.811 Other drug-induced pancytopenia; K21.9 Gastro-esophageal reflux disease without esophagitis; I10 Essential (primary) hypertension; J90 Pleural effusion, not elsewhere classified; N28.89 Other specified disorders of kidney and ureter; J98.11 Atelectasis; R60.0 Localized edema; R91.1 Solitary pulmonary nodule; Z71.3 Dietary counseling and surveillance
CPT/HCPCS: 82565; 84520; 71260; 74177; 36415; Q9967

== ENCOUNTER → 2023-08-18 | Outpatient (CLI) | payer BC ==
[2023-08-18 16:46] LABS: African American GFR (CKD) >90 (>60 ml/min/1.73 sqM); Blood Urea Nitrogen 10 mg/dL (7-17); Non-African American GFR(CKD) >90 (>60 ml/min/1.73 sqM)
--- NOTE | 2023-08-18 17:34 | CT ---
EXAMINATION TYPE: CT angio chest DATE OF EXAM: 08/18/2023 COMPARISON: 05/14/2023 HISTORY: 47-year-old female sob, chest pain. pt had metastatic ovarian ca. TECHNIQUE: Contiguous axial scanning of the chest after the administration of 65ml mL of Isovue 370. Coronal/sagittal MIP reconstructions performed. CT DLP: 356.30mGycm. Automatic exposure control utilized for a dose reduction. FINDINGS: Right anterior chest wall injection port with catheter tip at the upper SVC. Heart upper limits of normal in size without pericardial effusion. No flattening of the interventricu lar septum reflux of contrast into hepatic veins. Borderline ectatic aortic root at 3.5 cm. Conventional arch vessel branching anatomy. AP window lymph node has increased in size at 1.2 cm short axis versus 9 mm, previously. Lower right paratracheal node now 1.4 cm versus 1.1 cm, previously. Satisfactory opacification of the pulmonary arterial system without evidence for pulmonary embolus. There are small bilateral pleural effusions which have slightly increased in the interval. Bilateral pleural catheters remain in place. Suspect areas of rounded atelectasis in the posterior lower lobes adjacent to the effusions. Mild diffuse bronchial wall thickening. Minimal emphysematous change. Strandy atelectasis or scarring at the left base. No gardenia consolidation seen. A 4 mm subpleural pulmonary nodule posterior right lower lobe remains unchanged. Visualized upper abdomen shows no gross abnormality. Bones: No osseous destructive process seen. IMPRESSION: 1. No evidence for pulmonary embolus. 2. Small bilateral pleural effusions, increased from 05/14/2023. Bilateral pleural catheters in place . Adjacent bilateral lower lobe opacities suspected to represent areas of rounded atelectasis and sca rring. 3. COPD with minimal emphysema. 4. AP window lymph and lower right paratracheal lymph nodes both increased in size now measuring up t o 1.4 cm versus 1.1 cm, previously. These may be reactive. Metastatic disease involvement not exclude d at this time. Routine oncologic follow-up recommended.
== END | disposition home or self-care (01) ==
LOC: RADCTMAIN 15:55
PROVIDERS: ATTEND Internal Medicine Hematology & Oncology
DX: J90 Pleural effusion, not elsewhere classified (principal); J44.9 Chronic obstructive pulmonary disease, unspecified; J43.9 Emphysema, unspecified; C56.9 Malignant neoplasm of unspecified ovary; R91.8 Other nonspecific abnormal finding of lung field; D61.811 Other drug-induced pancytopenia; K21.9 Gastro-esophageal reflux disease without esophagitis; I10 Essential (primary) hypertension; Z97.8 Presence of other specified devices
CPT/HCPCS: 82565; 84520; 71275; 36415; Q9967

== ENCOUNTER → 2023-09-10 | Outpatient (CLI) | payer BC ==
--- NOTE | 2023-09-15 08:31 | MM ---
Reason for Exam: Screening (asymptomatic). Last mammogram was performed 2 year(s) and 6 month(s) ago. Patient History: Menarche at age 14. Patient has no children. Left ovary removed at age 41. Right ovary removed at age 41. Hysterectomy at age 41. Postmenopausal. Ovarian cancer, age 41. Previous chemotherapy at age 42. Risk Values: Qian 5 year model risk: 0.9%. NCI Lifetime model risk: 10.6%. Prior Study Comparison: 04/18/2019 Bilateral Screening Mammogram, [facility]. 03/18/2021 Bilateral Screening Mammogram, [facility]. Tissue Density: There are scattered areas of fibroglandular density. Findings: Analyzed By CAD. There is no suspicious group of microcalcifications or new suspicious mass. Overall Assessment: Negative, BI-RAD 1 Management: Screening Mammogram of both breasts in [address] [facility] will attempt to contact patient to return for supplemental views and ultrasound if indicated. Patient should continue monthly self-breast exams. A clinical breast exam by your physician is recommended on an annual basis. This exam should not preclude additional follow-up of suspicious palpable abnormalities. Note on Qian scores and lifetime risk: 1. A Qian score greater than 3% is considered moderate risk. If this is the case, consider specialist referral to assess eligibility for a risk reducing agent. 2. If overall lifetime risk for the development of breast cancer is 20% or higher, the patient may qualify for future screening with alternating mammogram and breast MRI. Electronically signed and approved by: Ignacio Mcknight DO
== END | disposition home or self-care (01) ==
LOC: RADMAMWWP 14:50
PROVIDERS: ATTEND Internal Medicine Hematology & Oncology
DX: Z12.31 Encounter for screening mammogram for malignant neoplasm of breast (principal); C56.9 Malignant neoplasm of unspecified ovary; K21.9 Gastro-esophageal reflux disease without esophagitis; D61.811 Other drug-induced pancytopenia; I10 Essential (primary) hypertension; Z78.0 Asymptomatic menopausal state
CPT/HCPCS: 77063; 77067

== ENCOUNTER → 2023-10-26 | Outpatient (CLI) | payer BC ==
--- NOTE | 2023-10-26 13:37 | XR ---
EXAMINATION TYPE: XR chest 2V DATE OF EXAM: 10/26/2023 12:36 PM CLINICAL INDICATION:Female, 47 years old with history of R07.9 CHEST PAIN; [facility] COMPARISON: Chest radiographs from 02/20/2023 TECHNIQUE: XR chest 2V Frontal and lateral views of the chest. FINDINGS: Lungs/Pleura: There is no evidence of pleural effusion, focal consolidation, or pneumothorax. Pulmonary vascularity: Unremarkable. Heart/mediastinum: Cardiomediastinal silhouette is unremarkable. Musculoskeletal: No acute osseous pathology. Lines/Tubes: [id number] projecting over the right hemithorax with distal tip projecting over the superior vena cava. Bilateral thoracotomy tubes with small bilateral pleural effusions. IMPRESSION: 1. No acute cardiopulmonary disease/process. 2. Bilateral thoracotomy tubes with small bilateral pleural effusions. No pneumothorax. 3.
== END | disposition home or self-care (01) ==
LOC: RADXRMAIN 12:20
PROVIDERS: ATTEND Surgery
DX: J90 Pleural effusion, not elsewhere classified (principal)
CPT/HCPCS: 71046

== ENCOUNTER → 2023-11-09 | Outpatient (CLI) | payer BC ==
[2023-11-09 12:12] LABS: African American GFR (CKD) >90 (>60 ml/min/1.73 sqM); Blood Urea Nitrogen 14 mg/dL (7-17); Non-African American GFR(CKD) >90 (>60 ml/min/1.73 sqM)
--- NOTE | 2023-11-09 13:30 | CT ---
EXAMINATION TYPE: CT ChestAbdPelvis w con DATE OF EXAM: 11/09/2023 COMPARISON: 08/18/[address] Chest pelvis 05/14/2023 HISTORY: f/u ovarian ca CT DLP: 1199.6 mGycm CONTRAST: CT scan of the chest, abdomen and pelvis is performed with Oral Contrast and with IV Contrast, patien t injected with 100 mL of Isovue 300. CT Chest: LUNGS: Loculated pleural effusion left lung base is again noted and measures 9.2 x 2.[address] larsen catheter are identified. There is also right-sided pleural effusion with right-sided pleural c atheter also unchanged in position. Right-sided effusion appears to have decreased in size in the int erval. Area of compressive atelectasis left lower lobe appears unchanged. No distinct pulmonary nodul e. MEDIASTINUM: Thoracic aorta is of normal caliber. The heart is not enlarged. AP window adenopathy m easures 1.6 cm short axis versus 1.2 cm previously. Additional subcentimeter paratracheal lymph nodes seen. HILAR STRUCTURES: No evidence for mass. No hilar adenopathy is appreciated. OTHER: No significant abnormality. CONTRAST CT ABDOMEN AND PELVIS FINDINGS: LIVER/GB: No calcified gallstones. Focal area of decreased attenuation within lateral segment left hepatic lobe could reflect an area of focal fatty infiltration however underlying lesion is not exclu ded measuring 3.7 cm. Consider ultrasound or MRI correlation. No additional hepatic lesions are seen. There is mild diffuse hepatic steatosis noted. Biliary tree is of normal caliber. PANCREAS: No inflammation. No distinct mass. SPLEEN: No splenic enlargement. No lesion seen. ADRENALS: No nodule. No thickening. KIDNEYS/BLADDER: No hydronephrosis. No nephrolithiasis. No distinct renal mass. BOWEL: Normal appendix. Normal bowel caliber. No inflammation. GENITAL ORGANS: Thin-walled cystic mass within the right hemipelvis appears significantly smaller in size and again demonstrates dependent calcific density and currently measures 5.9 x 1.4 cm versus 10 .4 cm x 3.8 cm . Hysterectomy changes noted. No left-sided adnexal mass seen. LYMPH NODES: No greater than 1cm abdominal or pelvic lymph nodes are appreciated. AORTA: No significant abnormality. OSSEOUS STRUCTURES: No significant abnormality is seen. OTHER: Minimal stable right-sided omental thickening. IMPRESSION: 1. New lesion lateral segment left hepatic lobe is difficult to exclude. Consider ultrasound or MRI c orrelation. 2. Thin-walled cystic mass or thin-walled loculated collection persists although is smaller in size r ight hemipelvis adjacent to the urinary bladder. 3. Bilateral pleural effusions as discussed above with basilar compressive atelectasis.
== END | disposition home or self-care (01) ==
LOC: RADCTMAIN 11:21
PROVIDERS: ATTEND Internal Medicine Hematology & Oncology
DX: J90 Pleural effusion, not elsewhere classified (principal); K76.89 Other specified diseases of liver; J98.11 Atelectasis; C56.9 Malignant neoplasm of unspecified ovary; N94.89 Other specified conditions associated with female genital organs and menstrual cycle; I10 Essential (primary) hypertension; K21.9 Gastro-esophageal reflux disease without esophagitis; D61.811 Other drug-induced pancytopenia; Z71.3 Dietary counseling and surveillance
CPT/HCPCS: 82565; 84520; 71260; 74177; 36415; J1642; Q9967

== ENCOUNTER 2023-12-06 17:13 | Emergency (ER) | payer BC ==
[2023-12-06 18:23] VITALS: TEMP 99
--- NOTE | 2023-12-06 19:43 | ED ---
General Adult HPI - General Chief complaint: Recheck/Abnormal Lab/Rx Stated complaint: Sob,swelling left side tube Time Seen by Provider: 12/06/23 18:40 Source: patient Mode of arrival: ambulatory Limitations: no limitations - History of Present Illness Initial comments: 48-year-old female with metastatic ovarian cancer presenting with chief complaint of chest wall pain. Patient has bilateral Pleurx catheters in place. She states that the left sided catheter has been clogged for months. She went to her cardiographic surgeons office yesterday to have it unclogged. She states that the provider was somewhat rough and she has had increasing pain and soreness in the left side of the chest. There is a small bump to the lateral chest wall that is quite painful. She has increased pain with raising her arm and movement in general. Patient is receiving chemo, last chemo was on 11/19/2023 and next is for 12/10/2023. She states she is also had nausea and decreased appetite which is unusual for her. No difficulty breathing. - Related Data Home Medications Medication Instructions Recorded Confirmed Ondansetron [Zofran] 4 mg PO Q4H PRN 01/06/20 04/16/23 Metoprolol Tartrate [Lopressor] 12.5 mg PO QAM 10/25/20 04/16/23 Albuterol Inhaler [Ventolin Hfa 2 puff INHALATION RT-Q4H PRN 04/30/22 04/16/23 Inhaler] Cholecalciferol [Vitamin D3 (25 125 mcg PO DAILY #0 04/30/22 04/16/23 Mcg = 1000 Iu)] Cyanocobalamin (Vitamin B-12) 2,500 mcg PO DAILY 04/30/22 04/16/23 [Vitamin B-12] Metoclopramide [Reglan] 10 mg PO Q6H PRN 04/30/22 04/16/23 hydrOXYzine HCL [Atarax] 25 mg PO QAM 04/30/22 04/16/23 FLUoxetine HCL [PROzac] 60 mg PO QAM 07/21/22 04/16/23 droNABinol 5 mg PO DAILY PRN 02/12/23 04/16/23 ALPRAZolam [Xanax] 0.25 mg PO DAILY PRN 02/16/23 04/16/23 HYDROcodone/APAP 5-325MG [[place] 1 tab PO Q6HR PRN 02/16/23 04/16/23 5-325] Allergies Allergy/AdvReac Type Severity Reaction Status Date / Time carboplatin Allergy Anaphylaxis Verified 12/06/23 17:41 hydromorphone [From Dilaudid] Allergy Nausea & Verified 12/06/23 17:41 Vomiting Review of Systems ROS Statement: Those systems with pertinent positive or pertinent negative responses have been documented in the HPI. ROS Other: All systems not noted in ROS Statement are negative. Past Medical History Past Medical History: Cancer Additional Past Medical History / Comment(s): ovarian cancer metastasis History of Any Multi-Drug Resistant Organisms: None Reported Past Surgical History: Hysterectomy Additional Past Surgical History / Comment(s): BILATERAL OOPHERECTOMY -TOTAL HYSTERECTOMY, COLON BIOPSY WITH MASS REMOVED, LAPAROTOMY, Past Anesthesia/Blood Transfusion Reactions: No Reported Reaction Past Psychological History: Anxiety, Depression Smoking Status: Never smoker Past Alcohol Use History: None Reported Past Drug Use History: None Reported - Past Family History Mother Family Medical History: No Reported History General Exam Limitations: no limitations General appearance: alert, in no apparent distress Head exam: Present: atraumatic, normocephalic Eye exam: Present: normal appearance, EOMI Neck exam: Present: normal inspection. Absent: meningismus Respiratory exam: Present: normal lung sounds bilaterally, chest wall tenderness. Absent: respiratory distress, wheezes, rales, rhonchi, stridor Cardiovascular Exam: Present: regular rate, normal rhythm, normal heart sounds. Absent: systolic murmur, diastolic murmur, rubs, gallop, clicks Neurological exam: Present: alert, oriented X3 Psychiatric exam: Present: normal affect, normal mood Skin exam: Present: normal color Course Vital Signs 12/06/23 12/06/23 12/06/23 17:36 18:12 18:20 Temperature 97.2 F L 99.0 F Pulse Rate 79 73 Respiratory 18 22 18 Rate Blood Pressure 104/60 117/67 O2 Sat by Pulse 97 97 Oximetry 12/06/23 12/06/23 12/06/23 20:21 21:16 22:45 Temperature Pulse Rate 74 65 78 Respiratory 13 16 16 Rate Blood Pressure 106/63 113/71 115/68 O2 Sat by Pulse 97 98 99 Oximetry 12/07/23 01:14 Temperature Pulse Rate 76 Respiratory 15 Rate Blood Pressure 109/65 O2 Sat by Pulse 97 Oximetry Medical Decision Making - Medical Decision Making Was pt. sent in by a medical professional or institution (ALBA Vasquez, PACKER INSPECTOR, urgent care, hospital, or usp...) When possible be specific @ -No Did you speak to anyone other than the patient for history (EMS, parent, family, police, friend...)? What history was obtained from this source @ -No Did you review nursing and triage notes (agree or disagree)? Why? @ -I reviewed and agree with nursing and triage notes Were old charts reviewed (outside hosp., previous admission, EMS record, old EKG, old radiological studies, urgent care reports/EKG's, usp records)? Report findings @ -No old charts were reviewed Differential Diagnosis (chest pain, altered mental status, abdominal pain women, abdominal pain men, vaginal bleeding, weakness, fever, dyspnea, syncope, headache, dizziness, GI bleed, back pain, seizure, CVA, palpatations, mental health, musculoskeletal)? @ -Differential includes pain related to metastatic disease, effusion, pneumothorax, rib fracture, muscle spasm, contusion, this is not an all- inclusive list EKG interpreted by me (3pts min.). @ -As above X-rays interpreted by me (1pt min.). @ -X-ray shows slightly increased size of left basilar pleural effusion and adjacent atelectasis/airspace disease. Lesser similar opacities at the right lung base are stable. Bibasilar pleural drainage catheters appear unchanged CT interpreted by me (1pt min.). @ -None done U/S interpreted by me (1pt. min.). @ -None done What testing was considered but not performed or refused? (CT, X-rays, U/S, labs)? Why? @ -None What meds were considered but not given or refused? Why? @ -None Did you discuss the management of the patient with other professionals (professionals i.e. ALBA Vasquez, PACKER INSPECTOR, lab, RT, psych nurse, social insurance specialist, battery filler, teacher, precinct commanding officer, casey saw operator)? Give summary @ -No Was smoking cessation discussed for >3mins.? @ -No Was critical care preformed (if so, how long)? @ -No Were there social determinants of health that impacted care today? How? (Ho melessness, low income, unemployed, alcoholism, drug addiction, transportation, low edu. Level, literacy, decrease access to med. care, [facility], rehab)? @ -No Was there de-escalation of care discussed even if they declined (Discuss DNR or withdrawal of care, Hospice)? DNR status @ -No What co-morbidities impacted this encounter? (DM, HTN, Smoking, COPD, CAD, Cancer, CVA, ARF, Chemo, Hep., AIDS, mental health diagnosis, sleep apnea, morbid obesity)? @ -None Was patient admitted / discharged? Hospital course, mention meds given and route, prescriptions, significant lab abnormalities, going to OR and other pertinent info. @ -48-year-old female with metastatic ovarian cancer presenting with chief complaint of left-sided chest wall pain. She has bilateral Pleurx catheters and yesterday had her left-sided catheter unclogged at her surgeon's office. Today she is having soreness to that side. She has had no other injury or trauma. No difficulty breathing. History and physical exam are conducted. Lab work shows no leukocytosis. Chest x-ray shows mild increase in the size of her left-sided pleural effusion otherwise no explanation for pain. Patient was provided with pain medication and on reassessment she reports improvement in her symptoms. Pain is most likely related to the manipulation she had to the area yesterday. She will follow-up with her surgeons office tomorrow. Discharge. Follow-up with PCP. Report back to ER with any new or worsening symptoms. Discussed return parameters and answered all questions. Patient conveyed verbal understanding and agreed to the plan. I discussed this case in detail with my attending Dr. Banegas Undiagnosed new problem with uncertain prognosis? @ -No Drug Therapy requiring intensive monitoring for toxicity (Heparin, Nitro, Insu rose, Cardizem)? @ -No Were any procedures done? @ -No Diagnosis/symptom? @ -Chest wall pain Acute, or Chronic, or Acute on Chronic? @ -Acute Uncomplicated (without systemic symptoms) or Complicated (systemic symptoms)? @ -Uncomplicated Side effects of treatment? @ -No Exacerbation, Progression, or Severe Exacerbation? @ -No Poses a threat to life or bodily function? How? (Chest pain, USA, IA, pneumonia, PE, COPD, DKA, ARF, appy, cholecystitis, CVA, Diverticulitis, Homicidal, Suicidal, threat to staff... and all critical care pts) @ -Unlikely - Lab Data Result diagrams: 12/06/23 20:11 12/06/23 20:11 Lab Results 12/06/23 12/06/23 12/06/23 Range/Units 20:11 20:11 20:11 WBC 9.6 (3.8-10.6) k/uL RBC 3.72 L (3.80-5.40) m/uL Hgb 10.2 L (11.4-16.0) gm/dL Hct 31.4 L (34.0-46.0) % MCV 84.3 (80.0-100.0) fL MCH 27.4 (25.0-35.0) pg MCHC 32.5 (31.0-37.0) g/dL RDW 15.0 (11.5-15.5) % Plt Count 397 (150-450) k/uL MPV 7.6 Neutrophils % 80 % Lymphocytes % 10 % Monocytes % 7 % Eosinophils % 0 % Basophils % 1 % Neutrophils # 7.6 (1.3-7.7) k/uL Lymphocytes # 1.0 (1.0-4.8) k/uL Monocytes # 0.7 (0-1.0) k/uL Eosinophils # 0.0 (0-0.7) k/uL Basophils # 0.1 (0-0.2) k/uL Sodium 132 L (137-145) mmol/L Potassium 4.0 (3.5-5.1) mmol/L Chloride 101 (98-107) mmol/L Carbon Dioxide 23 (22-30) mmol/L Anion Gap 8 mmol/L BUN 5 L (7-17) mg/dL Creatinine 0.46 L (0.52-1.04) mg/dL Est GFR (CKD-EPI)AfAm >90 (>60 ml/min/1.73 sqM) Est GFR (CKD-EPI)NonAf >90 (>60 ml/min/1.73 sqM) Glucose 93 (74-99) mg/dL Plasma Lactic Acid [place] 0.6 L (0.7-2.0) mmol/L Calcium 9.0 (8.4-10.2) mg/dL Total Bilirubin 0.7 (0.2-1.3) mg/dL AST 22 (14-36) U/L ALT 16 (4-34) U/L Alkaline Phosphatase 132 H (38-126) U/L Total Protein 7.1 (6.3-8.2) g/dL Albumin 4.0 (3.5-5.0) g/dL Disposition Clinical Impression: Chest wall pain Disposition: HOME SELF-CARE Condition: Fair Instructions (If sedation given, give patient instructions): Chest Wall Pain (ED) Additional Instructions: Follow-up with your surgeon. Report back to ER with any new or worsening symptoms. Is patient prescribed a controlled substance at d/c from ED?: No Referrals: None,Stated [Primary Care Provider] - 1-2 days Time of Disposition: 00:45
[2023-12-06] MEDS: MORPHINE SULFATE 4 MG/ML SYRINGE IVP STA (20:13)
[2023-12-06] MEDS: ONDANSETRON 4 MG/2 ML VIAL IVP STA (20:17)
[2023-12-06 20:25] LABS: Basophils # (A) 0.1 k/uL (0-0.2); Basophils % (A) 1 %; Eosinophils % (A) 0 %; HCT 31.4 % (34.0-46.0); HGB 10.2 gm/dL (11.4-16.0); Lymphocytes % (A) 10 %; MCH 27.4 pg (25.0-35.0); MCHC 32.5 g/dL (31.0-37.0); MCV 84.3 fL (80.0-100.0); Mean Platelet Volume 7.6; Monocytes # (A) 0.7 k/uL (0-1.0); Monocytes % (A) 7 %; Neutrophils # (A) 7.6 k/uL (1.3-7.7); Neutrophils % (A) 80 %; Platelet Count 397 k/uL (150-450); RBC 3.72 m/uL (3.80-5.40); WBC 9.6 k/uL (3.8-10.6)
[2023-12-06 20:48] LABS: ALT 16 U/L (4-34); AST 22 U/L (14-36); African American GFR (CKD) >90 (>60 ml/min/1.73 sqM); Alkaline Phosphatase 132 U/L (38-126); Anion Gap 8 mmol/L; Blood Urea Nitrogen 5 mg/dL (7-17); Carbon Dioxide 23 mmol/L (22-30); Chloride 101 mmol/L (98-107); Glucose 93 mg/dL (74-99); Non-African American GFR(CKD) >90 (>60 ml/min/1.73 sqM); Sodium 132 mmol/L (137-145); Total Bilirubin 0.7 mg/dL (0.2-1.3); Total Protein 7.1 g/dL (6.3-8.2)
[2023-12-06] MEDS: LIDOCAINE 4% PATCH TOPICAL ONE (21:13)
[2023-12-06] MEDS: HYDROmorphone 1 MG/ML 1 ML SYRINGE IVP STA (22:59)
[2023-12-06] MEDS: METOCLOPRAMIDE 5 MG/ML 2 ML VIAL IVP STA (23:01)
[2023-12-06] MEDS: KETOROLAC 15 MG/ML 1 ML VIAL IVP STA (23:08)
--- NOTE | 2023-12-07 00:22 | XR ---
EXAMINATION TYPE: XR chest 2V DATE OF EXAM: 12/06/2023 7:00 PM CLINICAL INDICATION:Female, 48 years old with history of L sided pain, pleurex cath; [facility] COMPARISON: 10/26/2023, 11/16/2023 TECHNIQUE: XR chest 2V. Frontal and lateral views of the chest.. FINDINGS: Lines/Tubes/Devices: Right chest power port is again noted with catheter tip over the mid SVC. Small bore pleural catheter at the left lung base curving and terminating over the left effusion, unchanged. Another smallbore p leural catheter at the right lung base appears unchanged. Heart/mediastinum: Cardiomediastinal silhouette is unchanged. Heart appears mildly enlarged. Pulmonary vascularity: Slightly increased central congestion. Lungs/Pleura: Slightly increased pleural/parenchymal opacity in the left lung base. Similar lesser op acity in the right lung base. Musculoskeletal: No acute osseous abnormality demonstrated in the limits of the exam. Other findings: None. IMPRESSION: * Slightly increased size of left basilar pleural effusion and adjacent atelectasis/airspace disease . * Lesser similar opacities at the right lung base are stable. * Bibasilar pleural drainage catheters appear unchanged.
[2023-12-07 01:15] VITALS: BP 109/65; PULSE 76; RESP 15
== END 2023-12-07 01:15 | disposition home or self-care (01) ==
LOC: EC 17:13
DX: J90 Pleural effusion, not elsewhere classified (principal); J98.11 Atelectasis; Z88.5 Allergy status to narcotic agent; Z88.8 Allergy status to other drugs, medicaments and biological substances
CPT/HCPCS: 99285; 96374; 96375 ×5; 36415; 80053; 83605; 85025; 71046; J2270; J2765; J2405; J1642; J1170; J1885

== ENCOUNTER 2023-12-25 08:47 | Day surgery (SDC) | payer BC ==
[~2023-12-25 08:47] MED LIST changes: +DEXAMETHASONE SOD PHOSPHATE 4 MG/ML 1 ML VIAL IV ONE; +ONDANSETRON 4 MG/2 ML VIAL IVP ONE; +SCOPOLAMINE 1 MG/72 HR PATCH TRANSDERM ONE; -SODIUM CHLORIDE 0.9% 500 ML 500 ML in EMPTY BAG 1 BAG IV PRN; +fentaNYL (PF) 50 MCG/ML 2 ML AMP IV PRN
[2023-12-25 10:08] VITALS: TEMP 97.1
[2023-12-25] MEDS: IV FLUID CONTINUATION 1,000 ML IV ONE (10:12)
[2023-12-25] MEDS: LACTATED RINGERS 1,000 ML IV SCH (10:15)
[2023-12-25] MEDS: MIDAZOLAM 2 MG/2 ML VIAL IV PRN (10:18)
[2023-12-25 10:33] LABS: Glucose,Whole Blood 87 mg/dL (70-110)
[2023-12-25] MEDS ORDERED: MIDAZOLAM 2 MG/2 ML VIAL ONE (11:26)
[2023-12-25] MEDS ORDERED: KETAMINE HCL IN 0.9 % NACL 50 MG/5 ML SYRINGE ONE (11:26)
[2023-12-25] MEDS ORDERED: PROPOFOL 10 MG/ML 20 ML VIAL IV ONE (11:26)
[2023-12-25] MEDS: LIDOCAINE 1% INJ 10MG/ML (20 ML MDV) SQ ONE ×2 (11:44)
--- NOTE | 2023-12-25 12:15 | P.OP ---
Date of Procedure: 12/25/23 Preoperative Diagnosis: Status post bilateral Pleurx catheter for metastatic ovarian carcinoma, no further effluence from the left Pleurx catheter Postoperative Diagnosis: Same Procedure(s) Performed: Removal of left Pleurx catheter Anesthesia: other (Local with IV sedation) Surgeon: Pernell Menchaca Estimated Blood Loss (ml): 0 Pathology: none sent Condition: stable Disposition: same day Description of Procedure: Patient was placed in supine position. IV sedation administered. Patient received 2 g of cefazolin intravenously. The chest was prepped and draped using ChloraPrep. Proper timeout was conducted. Local anesthesia was secured with 5 cc of lidocaine 1% over around 3 inch from the skin over the potential tunnel of the left Pleurx catheter. No much dissection was needed for the catheter to come out in entirety. Dressing applied.
[2023-12-25 12:29] VITALS: BP 135/80; PULSE 51; RESP 20
== END 2023-12-25 13:05 | disposition home or self-care (01) ==
LOC: OR 08:47
PROVIDERS: ATTEND Surgery
DX: Z46.82 Encounter for fitting and adjustment of non-vascular catheter (principal); C56.9 Malignant neoplasm of unspecified ovary; I10 Essential (primary) hypertension; K21.9 Gastro-esophageal reflux disease without esophagitis; F17.290 Nicotine dependence, other tobacco product, uncomplicated; Z88.5 Allergy status to narcotic agent; Z88.8 Allergy status to other drugs, medicaments and biological substances; Z79.899 Other long term (current) drug therapy
CPT/HCPCS: 32552; J2250; J0690; J2001; J2704

== ENCOUNTER → 2024-05-09 | Outpatient (CLI) | payer BC ==
[2024-05-09 12:17] LABS: African American GFR (CKD) >90 (>60 ml/min/1.73 sqM); Blood Urea Nitrogen 5 mg/dL (7-17); Non-African American GFR(CKD) >90 (>60 ml/min/1.73 sqM)
--- NOTE | 2024-05-10 12:15 | CT ---
EXAMINATION TYPE: CT ChestAbdPelvis w con DATE OF EXAM: 05/09/2024 2:04 PM COMPARISON: Multiple priors most recent 11/09/2023. Dating back to 2020.. CLINICAL INDICATION: Female, 48 years old with history of C56.9 ovarian ca; [facility], ovarian cancer Technique: CT ChestAbdPelvis w con; Multiple axial images were obtained. Two-dimensional coronal and sagittal reconstructions were obtained. Contrast used:100 mL of Isovue 300 with IV Contrast, (None if empty) Oral contrast used: with Oral Contrast CT DLP: 1612 mGycm, Automated exposure control for dose reduction was used. Findings: CHEST: LUNGS/ PLEURA: Stable loculated left lower lung pleural fusion. No focal consolidation, pneumothorax or right pleural effusion. AIRWAY: Patent and unremarkable. HEART: Size within normal limits. MEDIASTINUM: No gross evidence of adenopathy. Stable size of lymph nodes in the mediastinum including AP window lymph node measuring 12 mm in short axis. VASCULATURE: No aortic aneurysm. No catheter terminating in the superior vena cava. MUSCULOSKELETAL: No acute osseous abnormalities. SOFT TISSUES/LYMPH NODES: Unremarkable. LOWER NECK: No significant findings. ABDOMEN: ABDOMEN LIVER: Left hepatic lobe lesion measuring up tor 46 mm has increased from 07/13/2020 where it measured 22 mm. GALLBLADDER AND BILE DUCTS: Unremarkable. PANCREAS: Unremarkable. SPLEEN: Small splenule left lateral to the spleen. Unchanged from prior. ADRENAL GLANDS: Unremarkable. KIDNEYS AND URETERS: No evidence of hydronephrosis or renal calculus. The ureters are unremarkable. PELVIS BLADDER: Unremarkable REPRODUCTIVE: The uterus is surgically absent. ABDOMEN & PELVIS STOMACH AND BOWEL: No evidence of bowel obstruction. PERITONEUM/RETROPERITONEUM: No evidence of pneumoperitoneum or free fluid. Thin flat like appearance of fluid collection near the right aspect of the urinary bladder remains present. This has decreased in size from 11/09/2023. VASCULATURE: No evidence of aortic aneurysm. MUSCULOSKELETAL: No acute osseous abnormalities, moderate bilateral neural foraminal stenosis at L5-S 1. LYMPH NODES: No gross evidence for lymphadenopathy. SOFT TISSUE/ABDOMINAL WALL: Fat containing inguinal hernias bilaterally. IMPRESSION: 1. Stable left loculated pleural effusion. No new or enlarging lymph nodes identified. 2. Decrease in size of fluid collection near the right adnexa/right lateral aspect of the bladder. 3. Left hepatic lobe lesion dating back to 2020 possible representing hemangioma. MRI liver mass pro tocol could be performed for complete evaluation. This has slowly increased in size compared to 2020. 4. Resolution of prior right pleural effusion. [facility], , 05/10/2024 12:12 PM
== END | disposition home or self-care (01) ==
LOC: RADCTMAIN 11:14
PROVIDERS: ATTEND Internal Medicine Hematology & Oncology
DX: C56.9 Malignant neoplasm of unspecified ovary (principal); J90 Pleural effusion, not elsewhere classified
CPT/HCPCS: 82565; 84520; 71260; 74177; 36415; Q9967

== ENCOUNTER → 2024-12-08 | Outpatient (CLI) | payer BC ==
--- NOTE | 2024-12-08 15:46 | CT ---
EXAMINATION TYPE: CT ChestAbdPelvis w con DATE OF EXAM: 12/08/2024 COMPARISON: 05/09/2024 CLINICAL INDICATION: Female, 49 years old with history of C56.[address] DLP: 1169.9 mGycm Automated exposure control for dose reduction was used. CONTRAST: CT scan of the chest, abdomen and pelvis is performed with Oral Contrast and with IV Contrast, patien t injected with 100ml mL of Isovue 300. FINDINGS: CT chest: There is Mediport catheter on the right terminating in the SVC/right junction. There is no change in the large left lower lobe loculated pleural effusion. There is increasing lung consolidation adjacent to the effusion which could represent compressive atelectasis or pneumonic inf iltrate. There is progressive enlargement of a AP window lymph node from 2.2 x 1.2 cm to 1.5 x 2.7 cm. The great vessels and chest are normal. There is moderate cardiomegaly. No focal osseous lesions are seen. There are single bilateral healed rib fractures. CT abdomen and pelvis: Gallbladder is normal without distention, pericholecystic fluid, wall thickening or gallstone. There is no biliary ductal dilatation. There is no focal mass or organomegaly involving the pancreas, spleen or adrenal glands. There is a stable hemangioma in the lateral segment of the left lobe of the liver. There is no solid renal mass or hydronephrosis. There is no retroperitoneal adenopathy or hemorrhage in the caliber of the abdominal aorta is normal. The bowel loops are normal in caliber and there is no dilatation or obstruction. No inflammatory meeks ges identified in the bowel wall and mesentery. There is a small amount of fluid adjacent to small b owel loops in the left lower quadrant. There is no free intraperitoneal air. There is marked enlargement of the 11.9 x 6.5 cm fluid density mass with a focus of calcification cecelia ng the right aspect of the urinary bladder. No focal osseous lesions are seen. Soft tissue the abdomen and pelvis are normal. IMPRESSION: 1. Stable left lower lobe loculated pleural effusion. 2. Interval development of an adjacent consolidated density in the left lower lobe possibly compressi ve atelectasis or acute pneumonia. 3. enlarging AP window lymph node as described above. 4. Marked enlargement of the fluid collection with calcification adjacent to the right aspect of the urinary bladder as described above. [facility], , 12/08/2024 3:44 PM
== END | disposition home or self-care (01) ==
LOC: RADCTMAIN 13:03
PROVIDERS: ATTEND Internal Medicine Hematology & Oncology
DX: C56.9 Malignant neoplasm of unspecified ovary (principal); J98.4 Other disorders of lung; J90 Pleural effusion, not elsewhere classified; R59.0 Localized enlarged lymph nodes; N32.89 Other specified disorders of bladder
CPT/HCPCS: 71260; 74177; Q9967